=== PATIENT | male | born 1955 | race Caucasian/White ===

== ENCOUNTER 2017-05-07 01:19 | Inpatient (IN) | payer BC ==
[2017-05-07] VITALS (11 sets, daily range): BP systolic 98–138; BP diastolic 64–86
[~2017-05-07] VITALS: Ht 175.3 cm; Wt 65.3 kg
--- NOTE | ~2017-05-07 | 2DMMODE ---
[facility] [address] [place] [address] 2 D/M-MODE ECHOCARDIOGRAM Name: MARY ELLEN BARRIGALAS [place] Room #: 355-P [facility] IN ..#: [id number] Admission: 05/07/17 Attend Phys: Addison Alvarez, Discharge: Date of : 57 Date of Service: 05/07/17 1255 Report #: [id number] THIS REPORT FOR: //name// APPROVED REPORT Study performed: 05/07/2017 11:51:23 EXAM: Comprehensive 2D, Doppler, and color-flow Echocardiogram Patient Location: Bedside Room #: 255 Status: routine BSA: 1.75 HR: 87 bpm BP: 103/68 mmHg Other Information Study Quality: Good Indications Pulmonary Hypertension Dyspnea Cardiomyopathy 2D Dimensions RVDd: 43.94 mm LVEF(%): 14.94 (>50%) IVSd: 9.70 (7-11mm) LVOT Diam: 24.07 (18-24mm) LVDd: 71.21 mm PWd: 11.14 (7-11mm) Ascending Ao: 30.14 (22-36mm) LVDs: 66.29 (25-40mm) Aortic Root: 30.58 mm IVC: 29.00 mm Maldonado's LVEF: 14.94 % Volumes Left Atrial Volume (Systole) Single Plane 4CH: 77.58 mL Single Plane 2CH: 89.35 mL LA ESV Index: 52.00 mL/m2 Aortic Valve AoV Peak Turner.: 1.08 m/s AO Peak Gr.: 4.63 mmHg LVOT Max P.37 mmHg LVOT Max V: 0.58 m/s NOE Vmax: 2.47 cm2 Mitral Valve E/A Ratio: 1.1 [facility] [address] [address] 2 D/M-MODE ECHOCARDIOGRAM Name: LINUSTUTU [place] Room #: 355-P [facility] IN .R.#: [id number] Admission: 05/07/17 Attend Phys: Addison Alvarez, Discharge: Date of : 57 Date of Service: 05/07/17 1255 Report #: [id number] MV Decel. Time: 171.61 ms MV E Max Turner.: 0.61 m/s MV A Turner.: 0.56 m/s MV PHT: 49.77 ms IVRT: 145.33 ms Pulmonary Valve PV Peak Turner.: 0.82 m/s PV Peak Gr.: 2.70 mmHg Pulmonary Vein P Vein S: 0.21 m/s P Vein A: 0.17 m/s P Vein D: 0.30 m/s P Vein A Dur.: 86.5 msec P Vein S/D Ratio: 0.70 Tricuspid Valve TR Peak Turner.: 3.41 m/s TR Peak Gr.: 46.50 mmHg PA Pressure: 62.00 mmHg Left Ventricle Left ventricle is dilated. There is global hypokinesis of the left ventricle. There is normal left ventricular wall thickness. Left ventricular ejection fraction is severely decreased. LVEF is 15-20%. The left ventricular diastolic function is abnormal. Right Ventricle Right ventricle is dilated. Right ventricle is hypokinetic. Atria Left atrium is dilated. Right atrium is dilated. Aortic Valve The aortic valve is normal in structure. Aortic valve is calcified. No aortic regurgitation is present. There is no aortic valvular stenosis. Mitral Valve The mitral valve is normal in structure. Mild mitral regurgitation. No evidence of mitral valve stenosis. Tricuspid Valve The tricuspid valve is normal in structure. There is mild tricuspid regurgitation. There is moderate pulmonary hypertension. Estimated PAP [address] [address] 2 D/M-MODE ECHOCARDIOGRAM Name: TUTU BARRIGA Room #: 355-P [facility] IN .R.#: [id number] Admission: 05/07/17 Attend Phys: Addison Alvarez, Discharge: Date of : 57 Date of Service: 05/07/17 1255 Report #: [id number] Pulmonic Valve The pulmonary valve is normal in structure. Trace pulmonic regurgitation. Great Vessels The aortic root is normal in size. The inferior vena cava is dilated with no inspiratory collapse. Pericardium There is no pericardial effusion. <Conclusion> Left atrium is dilated. Right atrium is dilated. There is global hypokinesis of the left ventricle. There is no pericardial effusion. <ELECTRONICALLY SIGNED> By: Turner Ignacio MD, FACC 05/07/17 1255 1255 1255 Turner Ignacio MD, FACC /INF
--- NOTE | ~2017-05-07 | EKG ---
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
--- NOTE | ~2017-05-07 | HC ---
[facility] [place] [address] CONSULTATION Name: TUTU BARRIGA Room #: 355-P [facility] IN ..#: [id number] Admission: 05/07/17 Attend Phys: Addison Alvarez DO Discharge: Date of : 57 Report #: [id number] THIS REPORT FOR: //name// CC: AMADA physician/PCP Addison Alvarez DATE OF SERVICE: 05/08/2017 REQUESTING PHYSICIAN: Dr. Mccallum. PRIMARY CARE PHYSICIAN: None. CLOTH PRINTING INSPECTOR: Naga Holbrook M.D. REASON FOR CONSULTATION: Congestive heart failure. HISTORY OF PRESENT ILLNESS: The patient is a 61-year-old man admitted with abdominal pain and was found to have acute cholecystitis that had actually been going on since late spring. He was evaluated by surgery, and it was felt that a percutaneous approach may be helpful. From a heart failure standpoint, he denies active chest pain or pressure but had been slightly more short of breath than usual, although there really was not significant weight gain. He presents with a sinus rhythm. He denies palpitations, heart racing or skipping. He does have chills. PAST MEDICAL HISTORY: He has a history of cardiomyopathy. His ejection fraction this hospitalization is in the 20-25% range, global LV dysfunction. He has a history of chronic kidney disease and COPD. No known drug allergies. HOME MEDICATIONS: Carvedilol 25 mg p.o. b.i.d., ramipril 10 mg p.o. b.i.d., simvastatin 10 mg daily, Protonix 40 mg daily, naproxen p.r.n., polyethylene glycol p.r.n. and albuterol p.r.n. SOCIAL HISTORY: There is no active tobacco use. FAMILY HISTORY: Positive for high blood pressure. ALLERGIES: He has no known drug allergies. REVIEW OF SYSTEMS: GASTROINTESTINAL: Positive abdominal pain. Positive nausea. NEUROLOGIC: Denies slurred speech, numbness or weakness. HEMATOLOGIC: No history of anemia or bleeding disorders. [facility] [address] [place] [address] CONSULTATION Name: TUTU BARRIGA Room #: 355-[facility].#: [id number] Admission: 05/07/17 Attend Phys: Addison Alvarez DO Discharge: Date of : 57 Report #: [id number] SKIN: No rashes. GENERAL: No fevers or chills. MUSCULOSKELETAL: Denies any joint pain or falls. CARDIOVASCULAR: No palpitations, no syncope or presyncope. PHYSICAL EXAMINATION: VITAL SIGNS: Blood pressure is 121/81, pulse is 95, temperature is 36.7 and O2 sats 94%. GENERAL: This is a pleasant middle-aged male. He is alert, in no apparent distress. NECK: Supple. No jugular venous distention. CARDIOVASCULAR: Regular. I could not hear a murmur. There is positive S3. LUNGS: Clear to auscultation. ABDOMEN: Diffusely nontender. There is no rebound or guarding. EXTREMITIES: There is no peripheral edema. There is no evidence of peripheral wasting. SKIN: Warm and dry. PSYCHIATRIC: The patient has appropriate mood and affect. LABORATORY DATA: Electrocardiogram demonstrates sinus rhythm and left bundle-branch block. Hemoglobin is 11.0. White blood cell count is 12.3. Platelet count is 186,000. Sodium is 135. Potassium is 3.6. Chloride is 99. CO2 is 25. BUN is 48. Creatinine is 2.1. Troponin I is 0.04. NT-proBNP is 51,253. Chest x-ray: Increased cardiomegaly, patchy increased markings compatible with a right middle lobe and right lower lobe that may represent developing atelectasis or pneumonia. Early congestive heart failure or focal edema cannot be occluded. IMPRESSION AND PLAN: 1. Acute cholecystitis. He has been treated with a percutaneous approach and aggressive antibiotic therapy with piperacillin. 2. Acute systolic congestive heart failure. He has been placed on Lasix intravenous, but we will need to monitor blood pressures and kidney function. 3. Chronic kidney disease. As noted above, he has fairly significant kidney disease, and we will need to conscious monitor his renal function while he is being diuresed. 4. Severe left ventricular dysfunction. In the setting of the left bundle-branch block, he may be a candidate for Bi-V implantable cardioverter-defibrillator, but certainly he is acutely infectious, so this sort of device implantation would not be prudent at this time. We will arrange for close followup with Dr. Holbrook, his usual terrazzo tile setter, upon discharge for evaluation for this type of therapy. [address] [address] CONSULTATION Name: TUTU BARRIGA Room #: 355-P [facility] IN M.R.#: [id number] Admission: 05/07/17 Attend Phys: Addison Alvarez DO Discharge: Date of : 57 Report #: [id number] From a heart failure standpoint, he actually given his severe left ventricular dysfunction is fairly well compensated. By: [id number] Turner Ignacio MD, FACC /nt
[~2017-05-07 01:19] MED LIST: ALDACTONE25 MG PO; AZITHROMYCIN 2250 MG PO; BENZONATATE100 MG PO; CARVEDILOL3.125 MG PO; K-DUR 20 MEQ T20 MEQ PO; LASIX 40 MG TAB40 M1 PO; LASIX 40 MG TAB40 M2 PO; LEVAQUIN 500 M500 MG PO; MIRALAX255 GM PO; MOBIC15 MG PO; MUCINEX600 MG; NAPROSYN500 MG PO; NOHOMEMEDICATIONS; PANTOPRAZOLE SO40 M1 PO; POTASSIUM20 PO; PREDNISONE 20 M20 M1 PO; PREDNISONE 20 M20 MG PO; PREDNISONE50 MG PO; PROAIR HFA8.5 GM IH; PROAIR HFA8.5 GM INH; PROMETHAZINE-C120 ML PO; PROVENTIL HFA6.7 G1 INH; RAMIPRIL10 MG PO; TESSALON PERLE100 MG PO; ZOCOR20 MG PO; ZPAK PO
[2017-05-07 01:53] LABS: HEMATOCRIT 39.9 % (42.0-52.0); HEMOGLOBIN 12.8 gm/dL (14.0-18.0); MCH 25.9 pg (26.0-34.0); MCHC 32.1 g/dL (28.0-37.0); MCV 80.8 fL (80.0-100.0); RBC 4.94 mil/uL (4.50-6.00); RDW 17.7 % (10.5-14.5); WBC 17.4 thou/uL (4.0-11.0)
[2017-05-07 02:01] LABS: ANION GAP 8 mmol/L (7-16); BUN 49 mg/dL (7-18); CALCIUM 9.4 mg/dL (8.5-10.1); CHLORIDE 98 mmol/L (98-107); CO2 27 mmol/L (21-32); CREATININE 1.9 mg/dL (0.7-1.3); GLUCOSE 139 mg/dL (74-106); POTASSIUM 4.8 mmol/L (3.5-5.1); SODIUM 133 mmol/L (136-145)
[2017-05-07] MEDS ORDERED: ENTRESTO 49 MG1 EACH PO (02:09)
[2017-05-07 02:10] LABS: ALBUMIN 3.4 g/dL (3.4-5.0); ALKALINE PHOSPHATASE 213 U/L (46-116); SGOT 34 U/L (15-37); SGPT 32 U/L (30-65); TOTAL BILIRUBIN 1.2 mg/dL (<0.1-1.0); TOTAL PROTEIN 8.3 g/dL (6.4-8.2); TROPONIN-I < 0.04 ng/mL (<0.04-0.07)
[2017-05-07 04:56] LABS: APTT 30.6 Seconds (24.5-32.8); INR 1.1; PROTIME 10.9 Seconds (9.3-11.4)
[2017-05-07] MEDS ORDERED: CARVEDILOL6.25 MG (06:02)
[2017-05-08 04:45] VITALS: BP 130/83
[2017-05-08 06:13] LABS: HEMATOCRIT 34.2 % (42.0-52.0); MCH 25.8 pg (26.0-34.0); MCHC 32.2 g/dL (28.0-37.0); MCV 80.2 fL (80.0-100.0); RBC 4.26 mil/uL (4.50-6.00); WBC 12.3 thou/uL (4.0-11.0)
[2017-05-08 06:50] LABS: ALBUMIN 2.9 g/dL (3.4-5.0); CALCIUM 8.9 mg/dL (8.5-10.1); CREATININE 2.1 mg/dL (0.7-1.3); POTASSIUM 3.6 mmol/L (3.5-5.1); TOTAL BILIRUBIN 1.6 mg/dL (<0.1-1.0); TOTAL PROTEIN 7.6 g/dL (6.4-8.2)
[2017-05-08 08:14] VITALS: BP 121/81
[2017-05-08 12:15] VITALS: BP 125/87
[2017-05-08 20:00] VITALS: BP 119/91
[2017-05-09 04:00] VITALS: BP 118/83
[2017-05-09 05:55] LABS: BASOPHILS 0.6 % (0.0-2.0); EOSINOPHILS 1.9 % (0.0-3.0); HEMATOCRIT 34.5 % (42.0-52.0); HEMOGLOBIN 11.6 gm/dL (14.0-18.0); LYMPHOCYTES 25.5 % (24.0-44.0); MCH 26.3 pg (26.0-34.0); MCHC 33.5 g/dL (28.0-37.0); MCV 78.5 fL (80.0-100.0); MONOCYTES 4.6 % (1.0-8.0); PLATELET COUNT 203 thou/uL (150-400); POLYS 67.4 % (36.0-66.0); RBC 4.39 mil/uL (4.50-6.00); WBC 13.3 thou/uL (4.0-11.0)
[2017-05-09 05:59] LABS: CALCIUM 9.3 mg/dL (8.5-10.1); CREATININE 2.1 mg/dL (0.7-1.3); POTASSIUM 3.2 mmol/L (3.5-5.1)
[2017-05-09 06:01] LABS: MANUAL DIFF NO
[2017-05-09 08:40] VITALS: BP 125/91
[2017-05-09 12:45] VITALS: BP 115/82
[2017-05-09 16:15] VITALS: BP 118/84
[2017-05-09 19:44] VITALS: BP 121/91
[2017-05-10 04:25] VITALS: BP 125/86
[2017-05-10] MEDS ORDERED: AUGMENTIN 875-1 EACH PO (10:08)
[2017-05-10] MEDS ORDERED: OXYCODONE HCL10 MG PO (10:08)
[2017-05-10 10:09] LABS: ABSOLUTE NEUTROPHILS 5.5 thou/uL (1.4-8.2); BASOPHILS 1.1 % (0.0-2.0); EOSINOPHILS 2.8 % (0.0-3.0); HEMATOCRIT 35.9 % (42.0-52.0); HEMOGLOBIN 11.9 gm/dL (14.0-18.0); LYMPHOCYTES 34.8 % (24.0-44.0); MANUAL DIFF NO; MCH 26.3 pg (26.0-34.0); MCHC 33.1 g/dL (28.0-37.0); MCV 79.5 fL (80.0-100.0); MONOCYTES 8.3 % (1.0-8.0); PLATELET COUNT 226 thou/uL (150-400); RBC 4.51 mil/uL (4.50-6.00); RDW 17.8 % (10.5-14.5); WBC 10.4 thou/uL (4.0-11.0)
[2017-05-10 10:13] LABS: CREATININE 2.3 mg/dL (0.7-1.3)
[2017-05-10 10:40] VITALS: BP 125/86
== END 2017-05-10 11:35 | disposition home or self-care (01) | DRG 871 ==
LOC: ER 01:19 → EROBS 03:59 → 3W 03:59
PROVIDERS: Emergency Medicine; Family Medicine; Nurse Practitioner Family; Radiology Diagnostic Radiology
PROC: 0F943ZZ Drainage of Gallbladder, Percutaneous Approach (ICD-10-PCS; principal; 2017-05-07)
DX: A41.9 Sepsis, unspecified organism (principal); I50.23 Acute on chronic systolic (congestive) heart failure; N17.9 Acute kidney failure, unspecified; I42.9 Cardiomyopathy, unspecified; K81.0 Acute cholecystitis; M10.9 Gout, unspecified; F17.210 Nicotine dependence, cigarettes, uncomplicated; J44.9 Chronic obstructive pulmonary disease, unspecified; N18.9 Chronic kidney disease, unspecified; I44.7 Left bundle-branch block, unspecified; Z82.49 Family history of ischemic heart disease and other diseases of the circulatory system; Z23 Encounter for immunization; Z79.899 Other long term (current) drug therapy
CPT/HCPCS: 10779

== ENCOUNTER 2017-10-06 12:12 | Inpatient (IN) | payer BC ==
[~2017-10-06] VITALS: Ht 175.3 cm; Wt 68.0 kg
--- NOTE | ~2017-10-06 | EKG ---
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 : 1955 Requested By: Yazmin Valderrama Order Number: [id number] MD: Osmani Roe Measurements Intervals [place] Rate: 94 P: 77 ME: 191 QRS: -67 QRSD: 135 T: 113 QT: 420 QTc: 526 Interpretive Statements Sinus rhythm Biatrial enlargement Left bundle branch block Compared to ECG 05/07/2017 01:25:06 Left bundle-branch block now present Sinus tachycardia no longer present Electronically Signed On 10-07-2017 8:05:35 SAND TEMPERER by Osmani Roe [email or web address] <ELECTRONICALLY SIGNED> By: Osmani Roe MD, [facility] 10/07/17 0805 15 Osmani Roe MD, [facility] /EPI
--- NOTE | ~2017-10-06 | HC ---
[facility] [place] [address] CONSULTATION Name: TUTU BARRIGA Room #: 358-P [facility] IN M.R.#: [id number] Admission: 10/06/17 Attend Phys: Stevan Coleman Discharge: 10/07/17 Date of : 57 Report #: [id number] THIS REPORT FOR: //name// CC: Stevan Coleman Dorian Bhardwaj DATE OF SERVICE: 10/07/2017 REQUESTING PHYSICIAN: Stevan Coleman MD PRIMARY GRADUATE RECRUITER: Naga Holbrook MD CHIEF COMPLAINT: Shortness of breath. HISTORY OF PRESENT ILLNESS: The patient is a 62-year-old man who has a history of nonischemic cardiomyopathy and COPD, presented with 4 days of shortness of breath and minimally productive cough. He denies weight gain, actually he had been losing weight as he has a history of gallbladder disease and recently had a drainage tube placed. This has subsequently been resolved. He denies chest pain. He denies fevers or chills. He denies palpitations, syncope, or presyncope, presents with a sinus rhythm with LVH. Overnight, he has been given IV Lasix and urinating quite frequently as well as nebulizers and is feeling like he wants to go home as he had difficulty sleeping in the hospital. PAST MEDICAL HISTORY: Nonischemic cardiomyopathy, ejection fraction 20% range, chronic COPD, cholecystitis, prior cholecystostomy, , chronic kidney disease. ALLERGIES: Denies any allergies. HOME MEDICATIONS: Include carvedilol 6.25 mg once daily, Meloxicam p.r.n., potassium chloride 20 mEq daily, Lasix 40 mg p.o. b.i.d., Aldactone 25 mg daily and he had ran out of Farelogix, which he had been given samples and actually did really well on the 49/51 mg dose. SOCIAL HISTORY: He is a current everyday smoker. He drinks daily. [facility] [address] [place] [address] CONSULTATION Name: TUTU BARRIGA Room #: 358-P [facility] IN [facility].#: [id number] Admission: 10/06/17 Attend Phys: Stevan Coleman Discharge: 10/07/17 Date of : 57 Report #: [id number] REVIEW OF SYSTEMS: CONSTITUTIONAL: No fevers or chills. EYES: Denies any blurred vision or loss of vision. HEENT: Denies any headaches or blurred vision. RESPIRATORY: Positive shortness of breath, positive cough. CARDIOVASCULAR: No chest pain. No palpitation. No syncope or presyncope. GASTROINTESTINAL: Mild abdominal distention and abdominal pain. GENITOURINARY: No dysuria or hematuria. NEUROLOGIC: Denies slurred speech, numbness or weakness. MUSCULOSKELETAL: No falls. PHYSICAL EXAMINATION: VITAL SIGNS: Blood pressure is 93/62, pulse is 88, and temperature is 36.6. GENERAL: This is a thin, middle-aged male. He is unkempt. HEENT: Unremarkable. Eyes intact. No facial asymmetry. NECK: Supple. There is no jugular venous distention. CARDIOVASCULAR: Regular, there is positive S3. LUNGS: Clear to auscultation. ABDOMEN: Soft, nontender, mild distention. No rebound or guarding. EXTREMITIES: There is no peripheral edema. SKIN: Warm and dry. There is peripheral wasting. There are no focal deficits. Electrocardiogram demonstrates sinus rhythm, LVH repolarization abnormality. LABORATORY DATA: Hemoglobin is 13.0, white blood cell count is 12.4. Sodium is 141, potassium is 3.5, chloride is 99, CO2 is 32, BUN is 42, creatinine is 1.8, on admission it was 1.7; and GFR is 39. Troponin I is 0.04 times 2 sets. NT-proBNP is 8676, it was as high as 51,000 in April of last year when he was in the hospital with CHF. IMPRESSION: 1. Acute on chronic systolic dysfunction, congestive heart failure. He is presently on IV Lasix b.i.d. and has a good response. I would continue with his carvedilol as his blood pressure tolerates. 2. Nonischemic cardiomyopathy. He had done well on Entresto. I think he would qualify for a prescription assistance program. I would not inpatient though because his blood pressure is a bit low while simultaneously receiving IV Lasix, this can be restarted as an outpatient. I discussed the importance of this with the patient in regards to its prevention of hospitalizations for congestive heart failure. 3. History of substance abuse. 4. Chronic obstructive pulmonary disease exacerbation. He is on aggressive pulmonary toilet. [address] [address] CONSULTATION Name: TUTU BARRIGA Room #: 358-P [facility] IN M.R.#: [id number] Admission: 10/06/17 Attend Phys: Stevan Coleman Discharge: 10/07/17 Date of : 57 Report #: [id number] He will follow up with our nurse practitioner in 1 week. I would leave his oral Lasix dose the same as we are restarting Entresto as an outpatient. <ELECTRONICALLY SIGNED> By: Turner Ignacio MD, FACC 11/12/17 0828 0855 1042 Turner Ignacio MD, FACC /nt
[~2017-10-06 12:12] MED LIST changes: -ALDACTONE25 MG PO; +AUGMENTIN 875-1 EACH PO; +COREG6.25 MG PO; +ENTRESTO 49 MG1 EACH PO; +NORCO 5-325 TA1 EACH PO; +OXYCODONE HCL10 MG PO; +SPIRONOLACTONE25 M1 PO
[2017-10-06 12:19] VITALS: BP 121/81
[2017-10-06 12:33] LABS: ABSOLUTE NEUTROPHILS 7.7 thou/uL (1.4-8.2); EOSINOPHILS 2.5 % (0.0-3.0); HEMATOCRIT 39.3 % (42.0-52.0); LYMPHOCYTES 26.6 % (24.0-44.0); MCH 26.6 pg (26.0-34.0); MCHC 33.1 g/dL (28.0-37.0); MCV 80.6 fL (80.0-100.0); MONOCYTES 7.4 % (1.0-8.0); PLATELET COUNT 285 thou/uL (150-400); POLYS 62.5 % (36.0-66.0); RBC 4.87 mil/uL (4.50-6.00); RDW 17.2 % (10.5-14.5); WBC 12.4 thou/uL (4.0-11.0)
[2017-10-06 12:40] LABS: ANION GAP 8 mmol/L (7-16); BUN 48 mg/dL (7-18); CALCIUM 9.3 mg/dL (8.5-10.1); CHLORIDE 99 mmol/L (98-107); CO2 27 mmol/L (21-32); CREATININE 1.7 mg/dL (0.7-1.3); GLUCOSE 180 mg/dL (74-106); SODIUM 134 mmol/L (136-145)
[2017-10-06 12:49] LABS: TROPONIN-I < 0.04 ng/mL (<0.06)
[2017-10-06 14:40] VITALS: BP 114/84
[2017-10-06 15:25] VITALS: BP 89/58
[2017-10-06 15:52] VITALS: BP 114/82
[2017-10-06 19:10] VITALS: BP 90/50
[2017-10-07 05:48] VITALS: BP 99/68
[2017-10-07 06:24] LABS: ALBUMIN 3.2 g/dL (3.4-5.0); ANION GAP 10 mmol/L (7-16); BUN 42 mg/dL (7-18); CALCIUM 9.7 mg/dL (8.5-10.1); CHLORIDE 99 mmol/L (98-107); CO2 32 mmol/L (21-32); CREATININE 1.8 mg/dL (0.7-1.3); GLUCOSE 92 mg/dL (74-106); PHOSPHORUS 3.4 mg/dL (2.5-4.9); POTASSIUM 3.5 mmol/L (3.5-5.1); SODIUM 141 mmol/L (136-145); TROPONIN-I < 0.04 ng/mL (<0.06)
[2017-10-07 08:07] VITALS: BP 93/62
[2017-10-07 09:04] VITALS: BP 93/62
[2017-10-07 09:07] VITALS: BP 93/62
[2017-11-15] MEDS ORDERED: PERCOCET 5-3251 EACH PO (12:31)
[2017-11-15] MEDS ORDERED: ONDANSETRON HCL4 M2 PO (12:38)
[2018-04-01] MEDS ORDERED: COREG6.25 MG PO (10:25)
[2018-04-01] MEDS ORDERED: ZAROXOLYN 5MG TA5 MG PO (10:25)
[2018-04-01] MEDS ORDERED: K-DUR 20 MEQ T20 MEQ PO (11:37)
[2018-05-02] MEDS ORDERED: LASIX 40 MG TAB40 M2 PO (22:34)
[2018-05-05] MEDS ORDERED: PREDNISONE 10 M10 MG PO (15:02)
[2018-05-05] MEDS ORDERED: PROTONIX40 M1 PO (15:02)
[2018-05-05] MEDS ORDERED: VENTOLIN HFA 1818 GM INH (15:02)
[2018-06-14] MEDS ORDERED: CLEOCIN HCL150 MG PO (09:44)
== END 2017-10-07 09:33 | disposition home or self-care (01) | DRG 292 ==
LOC: ER 12:12 → EROBS 13:30 → 3W 15:53
PROVIDERS: Emergency Medicine; Hospitalist
DX: I50.23 Acute on chronic systolic (congestive) heart failure (principal); I42.9 Cardiomyopathy, unspecified; J44.1 Chronic obstructive pulmonary disease with (acute) exacerbation; D64.9 Anemia, unspecified; F17.210 Nicotine dependence, cigarettes, uncomplicated; N18.9 Chronic kidney disease, unspecified; M10.9 Gout, unspecified
CPT/HCPCS: 10779

== ENCOUNTER 2017-10-22 22:39 | Emergency (ER) | payer OTHER ==
[~2017-10-22] VITALS: Ht 175.3 cm; Wt 72.6 kg
--- NOTE | ~2017-10-22 | EKG ---
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
[2017-10-22] MEDS ORDERED: ASPIR 8181 MG PO (23:21)
[2017-10-22 23:55] LABS: HEMATOCRIT 37.8 % (42.0-52.0); HEMOGLOBIN 12.4 gm/dL (14.0-18.0); MCH 26.1 pg (26.0-34.0); MCHC 32.7 g/dL (28.0-37.0); MCV 79.9 fL (80.0-100.0); RBC 4.73 mil/uL (4.50-6.00); RDW 16.6 % (10.5-14.5); WBC 12.6 thou/uL (4.0-11.0)
[2017-10-23 00:06] LABS: CALCIUM 9.6 mg/dL (8.5-10.1); CREATININE 2.1 mg/dL (0.7-1.3); POTASSIUM 3.8 mmol/L (3.5-5.1)
[2017-10-23 01:28] VITALS: BP 132/64
[2017-11-15] MEDS ORDERED: PERCOCET 5-3251 EACH PO (12:31)
[2017-11-15] MEDS ORDERED: ONDANSETRON HCL4 M2 PO (12:38)
[2018-04-01] MEDS ORDERED: COREG6.25 MG PO (10:25)
[2018-04-01] MEDS ORDERED: ZAROXOLYN 5MG TA5 MG PO (10:25)
[2018-04-01] MEDS ORDERED: K-DUR 20 MEQ T20 MEQ PO (11:37)
[2018-05-02] MEDS ORDERED: LASIX 40 MG TAB40 M2 PO (22:34)
[2018-05-05] MEDS ORDERED: PROTONIX40 M1 PO (15:02)
[2018-05-05] MEDS ORDERED: VENTOLIN HFA 1818 GM INH (15:02)
[2018-05-05] MEDS ORDERED: PREDNISONE 10 M10 MG PO (15:02)
[2018-06-14] MEDS ORDERED: CLEOCIN HCL150 MG PO (09:44)
== END 2017-10-23 01:18 | disposition home or self-care (01) ==
LOC: ER 22:39
PROVIDERS: Emergency Medicine
DX: I50.9 Heart failure, unspecified (principal); R06.00 Dyspnea, unspecified; M10.9 Gout, unspecified; J44.9 Chronic obstructive pulmonary disease, unspecified; I95.9 Hypotension, unspecified; F17.210 Nicotine dependence, cigarettes, uncomplicated; F10.99 Alcohol use, unspecified with unspecified alcohol-induced disorder; Z86.2 Personal history of diseases of the blood and blood-forming organs and certain disorders involving the immune mechanism

== ENCOUNTER 2017-10-23 12:26 | Inpatient (IN) | payer OTHER ==
[~2017-10-23] VITALS: Ht 175.3 cm; Wt 71.2 kg
--- NOTE | ~2017-10-23 | HC ---
[facility] [place] [address] CONSULTATION Name: TUTU BARRIGA Room #: 219-P ADM IN M.R.#: [id number] Admission: 10/23/17 Attend Phys: Manan Noyola MD Discharge: Date of : 57 Report #: [id number] THIS REPORT FOR: //name// CC: Supa Bhardwaj MD DATE OF SERVICE: 10/23/2017 HISTORY OF PRESENT ILLNESS: The patient a 62-year-old white male who I was asked to see in the hospital today after he complained of being short of breath. The history is obtained from the patient, his as well as some old records. The patient has had multiple hospitalizations here at [facility]. He initially saw my partner, Dr. Holbrook back in 2012. He presented with evidence of congestive heart failure. He had had no previous cardiac diagnosis. He was a smoker at that time. He underwent an echocardiogram back in 2012 that showed an ejection fraction of only 20% with biatrial enlargement and the right ventricle is dilated as well. He has been followed by Dr. Holbrook since that time. He was on no previous medication, was discharged on carvedilol, Lasix, lisinopril, potassium. He was admitted to [facility] last April with abdominal pain, was found to have evidence of cholecystitis. Because of his heart disease, he is felt to be a high operative risk for cholecystectomy. Therefore, he had a biliary drain placed and was sent home with a drain. The drain was eventually removed after a few weeks. He never had his gallbladder removed. The patient is not very active because of his heart disease. He was actually just admitted to [facility] last week with shortness of breath. He was seen by my partner, Dr. Ignacio. He was given IV Lasix and discharged. He was felt to be a candidate for Entresto, but his blood pressure is low. The patient was brought to the Emergency Room today by his . He has been more short of breath for the past couple of days. He has some abdominal distention and nausea with no appetite. The patient denies any chest pain, palpitations, recent syncope, fever, cough, bleeding. PAST MEDICAL HISTORY: Otherwise significant for knee surgery, tonsillectomy. He has no history of hypertension or diabetes. No history of hyperlipidemia. CURRENT MEDICATIONS: Include carvedilol 6.25 mg twice day, furosemide 120 mg a day, spironolactone 25 mg a day. ALLERGIES: He has no known drug allergies. FAMILY HISTORY: Negative for heart disease. [facility] [address] [place] [address] CONSULTATION Name: TUTU BARRIGA Room #: 219-P [facility] IN M.R.#: [id number] Admission: 10/23/17 Attend Phys: Manan Noyola MD Discharge: Date of : 57 Report #: [id number] SOCIAL HISTORY: He is , lives in [facility]. He is unemployed because of his heart disease. 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 Smokes a pack of cigarettes a day. No alcohol abuse. REVIEW OF SYSTEMS: No history of stroke. He has passed out in the past, felt to be secondary to low blood pressure. He has had a peptic ulcer in the past. No history of kidney disease, cancer or psychiatric illness. PHYSICAL EXAMINATION: GENERAL: Revealed a middle-aged male, lying in bed. He appears in no acute distress. VITAL SIGNS: His blood pressure 110/70, pulse is 80. He is afebrile. HEENT: He was anicteric. Conjunctivae pink. Mucous membranes moist. NECK: Veins appeared mildly distended. Neck was supple. CHEST: Decreased breath sounds at bases. CARDIOVASCULAR: Regular rate and rhythm, S3 gallop. No significant murmur. ABDOMEN: Soft, nontender. EXTREMITIES: Had no pitting edema. Posterior tibial pulse 1+ bilaterally. SKIN: His skin was cool and dry. LABORATORY DATA: His ECG shows a sinus rhythm with left axis left atrial enlargement, left bundle branch block. Workup in an echocardiogram today shows no pericardial effusion, dilated left ventricle, ejection fraction less than 20% with biatrial enlargement, moderate mitral and tricuspid insufficiency. His workup today in the Emergency Room, he had a VQ scan of the lung that showed no evidence of a pulmonary embolus. CT scan of the abdomen and pelvis with IV contrast today showed thickening of the gallbladder, small amount of ascites. His ultrasound of the abdomen today shows gallbladder thickening. His chest x-ray that was actually done last night showed cardiomegaly, no pulmonary edema. His lab work, sodium was 137, potassium 3.6. His BUN is up to 68. His creatinine is 2.1, glucose is 141. His albumin is 3.2. BNP 26,540. White blood cell count 10.0, hemoglobin 13.2. IMPRESSION AND RECOMMENDATIONS: 1. Acute on chronic systolic heart failure. Recommend IV Lasix. I would continue carvedilol and spironolactone. If blood pressure tolerated, then would consider resuming Entresto. Because of his severe cardiomyopathy, would consider implantation of a biventricular defibrillator. 2. Tobacco abuse. 3. Chronic obstructive pulmonary disease. 4. Chronic kidney disease. <ELECTRONICALLY SIGNED> By: Jace Naik MD, FACC 10/24/17 1747 1737 1929 Jace Naik MD, FAC /nt
--- NOTE | ~2017-10-23 | 2DMMODE ---
[facility] [place] [address] 2 D/M-MODE ECHOCARDIOGRAM Name: TUTU BARRIGA Room #: 219-P [facility] IN ..#: [id number] Admission: 10/23/17 Attend Phys: Manan Noyola MD Discharge: Date of : 57 Date of Service: 10/23/17 1709 Report #: [id number] THIS REPORT FOR: //name// APPROVED REPORT Study performed: 10/23/2017 15:28:11 EXAM: Comprehensive 2D, Doppler, and color-flow Echocardiogram Patient Location: Bedside Room #: ER Status: on-call BSA: 1.87 HR: 82 bpm BP: 113/65 mmHg Rhythm: NSR Other Information Study Quality: Excellent Indications Hypotension Congestive Heart Failure COPD Dyspnea 2D Dimensions LVEF(%): 15.25 (>50%) IVSd: 11.24 (7-11mm) LVOT Diam: 21.60 (18-24mm) LVDd: 69.25 mm PWd: 12.54 (7-11mm) Ascending Ao: 29.81 (22-36mm) LVDs: 64.37 (25-40mm) Aortic Root: 26.39 mm LV Single Plane 2CH: 22.56 % Maldonado's LVEF: 15.25 % Volumes Left Atrial Volume (Systole) Single Plane 4CH: 72.41 mL Single Plane 2CH: 75.83 mL LA ESV Index: 42.00 mL/m2 Aortic Valve AoV Peak Turner.: 0.76 m/s AO Peak Gr.: 2.33 mmHg LVOT Max P.02 mmHg LVOT Max V: 0.51 m/s NOE Vmax: 2.43 cm2 [facility] [place] [address] [place] [address] 2 D/M-MODE ECHOCARDIOGRAM Name: TUTU BARRIGA Room #: 219-P ADM IN ..#: [id number] Admission: 10/23/17 Attend Phys: Manan Noyola MD Discharge: Date of : 57 Date of Service: 10/23/17 1709 Report #: [id number] Pulmonary Valve PV Peak Turner.: 0.72 m/s PV Peak Gr.: 2.08 mmHg Tricuspid Valve TR Peak Turner.: 2.93 m/s RAP Estimate: 15.00 mmHg TR Peak Gr.: 34.29 mmHg PA Pressure: 50.00 mmHg Left Ventricle Left ventricle is moderately dilated. There is global hypokinesis of the left ventricle. Borderline concentric left ventricular hypertrophy. Left ventricular systolic function is severely decreased. LVEF is 10-15%. The diastolic function is abnormal. Right Ventricle Right ventricle is dilated. Right ventricular systolic function is severely reduced. Atria Left atrium is moderately dilated. Right atrium is moderately dilated. Aortic Valve The aortic valve is normal in structure. No aortic regurgitation is present. There is no aortic valvular stenosis. Mitral Valve The mitral valve is normal in structure. Mild to moderate mitral regurgitation. No evidence of mitral valve stenosis. Tricuspid Valve The tricuspid valve is normal in structure. Moderate tricuspid regurgitation. Pulmonary artery pressure is 50 mmHg. Pulmonic Valve The pulmonary valve is normal in structure. Mild to moderate pulmonic regurgitation. Great Vessels The aortic root is normal in size. The inferior vena cava is dilated with no inspiratory collapse. Pericardium There is no pericardial effusion. <Conclusion> [facility] [place] [place] [address] 2 D/M-MODE ECHOCARDIOGRAM Name: TUTU BARRIGA Room #: 219-P ADM IN M.R.#: [id number] Admission: 10/23/17 Attend Phys: Manan Noyola MD Discharge: Date of : 57 Date of Service: 10/23/171708 Report #: [id number] Left ventricle is moderately dilated. LVEF is 10-15%. Right ventricle is dilated. Left atrium is moderately dilated. Right atrium is moderately dilated. Mild to moderate mitral regurgitation. Moderate tricuspid regurgitation. Pulmonary artery pressure is 50 mmHg. <ELECTRONICALLY SIGNED> By: Jace Naik MD, [facility] 10/23/171708 08 1709 Jace Naik MD, FACC /INF
--- NOTE | ~2017-10-23 | EKG ---
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 10/24/17 1344 1315 1315 Osmani Roe MD, [facility] /EPI
[~2017-10-23 12:26] MED LIST changes: +ASPIR 8181 MG PO
[2017-10-23 12:35] VITALS: BP 110/76
[2017-10-23 13:21] LABS: ABSOLUTE NEUTROPHILS 5.1 thou/uL (1.4-8.2); BASOPHILS 1.2 % (0.0-2.0); EOSINOPHILS 2.4 % (0.0-3.0); HEMATOCRIT 39.8 % (42.0-52.0); HEMOGLOBIN 13.2 gm/dL (14.0-18.0); LYMPHOCYTES 37.3 % (24.0-44.0); MCH 26.6 pg (26.0-34.0); MCHC 33.2 g/dL (28.0-37.0); MCV 79.9 fL (80.0-100.0); MONOCYTES 7.8 % (1.0-8.0); PLATELET COUNT 250 thou/uL (150-400); POLYS 51.3 % (36.0-66.0); RBC 4.98 mil/uL (4.50-6.00); RDW 16.8 % (10.5-14.5)
[2017-10-23 13:37] LABS: ANION GAP 10 mmol/L (7-16); BUN 68 mg/dL (7-18); CALCIUM 9.1 mg/dL (8.5-10.1); CHLORIDE 97 mmol/L (98-107); CO2 30 mmol/L (21-32); CREATININE 2.1 mg/dL (0.7-1.3); GLUCOSE 141 mg/dL (74-106); POTASSIUM 3.6 mmol/L (3.5-5.1); SODIUM 137 mmol/L (136-145)
[2017-10-23 13:41] LABS: ALBUMIN 3.2 g/dL (3.4-5.0); LIPASE 57 U/L (73-393); MAGNESIUM 2.2 mg/dL (1.8-2.4); SGOT 29 U/L (15-37); SGPT 29 U/L (30-65); TOTAL BILIRUBIN 0.4 mg/dL (<0.1-1.0); TOTAL PROTEIN 8.6 g/dL (6.4-8.2); TROPONIN-I < 0.04 ng/mL (<0.06)
[2017-10-23 13:43] LABS: APTT 27.3 Seconds (24.5-32.8); D-DIMER 1.58 ug/mLFEU (0.19-0.50); INR 1.2; PROTIME 12.2 Seconds (9.3-11.4)
[2017-10-23 15:03] VITALS: BP 110/76
[2017-10-23 16:32] VITALS: BP 120/87
[2017-10-23 17:45] VITALS: BP 120/83
[2017-10-23 19:53] VITALS: BP 133/72
[2017-10-24 00:10] VITALS: BP 103/74
[2017-10-24 03:08] LABS: URINE BILIRUBIN NEGATIVE (Negative); URINE BLOOD NEGATIVE (Negative); URINE CLARITY CLEAR; URINE COLOR YELLOW; URINE GLUCOSE-RANDOM* NEGATIVE (Negative); URINE KETONES NEGATIVE (Negative); URINE LEUKOCYTES-REFLEX NEGATIVE (Negative); URINE NITRITE-REFLEX NEGATIVE (Negative); URINE PROTEIN (DIPSTICK) NEGATIVE (Negative); URINE SPECIFIC GRAVITY <= 1.005 (1.005-1.035); URINE UROBILINOGEN 0.2 E.U./dl (0.2-1.0)
[2017-10-24 05:26] VITALS: BP 96/66
[2017-10-24 07:03] LABS: HEMATOCRIT 38.9 % (42.0-52.0); HEMOGLOBIN 12.5 gm/dL (14.0-18.0); MCH 25.9 pg (26.0-34.0); MCHC 32.1 g/dL (28.0-37.0); MCV 80.7 fL (80.0-100.0); RBC 4.82 mil/uL (4.50-6.00); RDW 16.8 % (10.5-14.5)
[2017-10-24 07:09] LABS: CALCIUM 9.2 mg/dL (8.5-10.1); CREATININE 2.6 mg/dL (0.7-1.3); POTASSIUM 3.8 mmol/L (3.5-5.1)
[2017-10-24 08:30] VITALS: BP 114/80
[2017-10-24 10:39] LABS: AMP/METHAMP POSITIVE (Negative); BARBITURATES Negative (Negative); BENZODIAZEPINES Negative (Negative); COCAINE Negative (Negative); METHADONE Negative (Negative); OPIATES POSITIVE (Negative); PCP Negative (Negative)
[2017-10-24 12:30] VITALS: BP 97/66
[2017-10-24 16:00] VITALS: BP 105/71
[2017-10-24 20:18] VITALS: BP 113/79
[2017-10-25] VITALS (11 sets, daily range): BP systolic 100–125; BP diastolic 45–85
[2017-10-25 03:27] LABS: HEMATOCRIT 39.4 % (42.0-52.0); HEMOGLOBIN 12.7 gm/dL (14.0-18.0); MCH 26.1 pg (26.0-34.0); MCHC 32.3 g/dL (28.0-37.0); MCV 80.7 fL (80.0-100.0); RBC 4.88 mil/uL (4.50-6.00); RDW 16.8 % (10.5-14.5); WBC 11.8 thou/uL (4.0-11.0)
[2017-10-25 03:43] LABS: CALCIUM 9.3 mg/dL (8.5-10.1); CREATININE 3.1 mg/dL (0.7-1.3); POTASSIUM 4.3 mmol/L (3.5-5.1)
[2017-10-26] VITALS (7 sets, daily range): BP systolic 98–115; BP diastolic 56–91
[2017-10-26 09:27] LABS: CALCIUM 9.9 mg/dL (8.5-10.1); CREATININE 2.4 mg/dL (0.7-1.3); POTASSIUM 3.5 mmol/L (3.5-5.1)
[2017-10-27 04:30] VITALS: BP 95/58
[2017-10-27] MEDS ORDERED: METOLAZONE 5 MG5 MG PO (10:59)
[2017-10-27] MEDS ORDERED: LISINOPRIL2.5 MG PO (11:00)
[2017-10-27 11:30] VITALS: BP 95/58
[2017-11-15] MEDS ORDERED: PERCOCET 5-3251 EACH PO (12:31)
[2017-11-15] MEDS ORDERED: ONDANSETRON HCL4 M2 PO (12:38)
[2018-04-01] MEDS ORDERED: COREG6.25 MG PO (10:25)
[2018-04-01] MEDS ORDERED: ZAROXOLYN 5MG TA5 MG PO (10:25)
[2018-04-01] MEDS ORDERED: K-DUR 20 MEQ T20 MEQ PO (11:37)
[2018-05-02] MEDS ORDERED: LASIX 40 MG TAB40 M2 PO (22:34)
[2018-05-05] MEDS ORDERED: PROTONIX40 M1 PO (15:02)
[2018-05-05] MEDS ORDERED: PREDNISONE 10 M10 MG PO (15:02)
[2018-05-05] MEDS ORDERED: VENTOLIN HFA 1818 GM INH (15:02)
[2018-06-14] MEDS ORDERED: CLEOCIN HCL150 MG PO (09:44)
== END 2017-10-27 12:32 | disposition home or self-care (01) | DRG 291 ==
LOC: ER 12:26 → 2N 14:58 → EROBS 14:58 → 2N 15:26
PROVIDERS: Emergency Medicine; Hospitalist; Internal Medicine Cardiovascular Disease
DX: I13.0 Hypertensive heart and chronic kidney disease with heart failure and stage 1 through stage 4 chronic kidney disease, or unspecified chronic kidney disease (principal); I50.23 Acute on chronic systolic (congestive) heart failure; J44.9 Chronic obstructive pulmonary disease, unspecified; M10.9 Gout, unspecified; K21.9 Gastro-esophageal reflux disease without esophagitis; F17.210 Nicotine dependence, cigarettes, uncomplicated; N18.9 Chronic kidney disease, unspecified; K59.00 Constipation, unspecified; E86.0 Dehydration; K81.1 Chronic cholecystitis; F15.10 Other stimulant abuse, uncomplicated; Z90.49 Acquired absence of other specified parts of digestive tract
CPT/HCPCS: 10194

== ENCOUNTER 2017-10-29 23:14 | Inpatient (IN) | payer OTHER ==
[~2017-10-29] VITALS: Ht 175.3 cm; Wt 65.6 kg
--- NOTE | ~2017-10-29 | HC ---
[facility] [place] [address] CONSULTATION Name: TUTU BARRIGA Room #: 350-[facility] IN M.R.#: [id number] Admission: 10/30/17 Attend Phys: Stevan Coleman Discharge: 10/31/17 Date of : 57 Report #: [id number] THIS REPORT FOR: //name// CC: [facility] Coleman [facility] DATE OF SERVICE: 10/30/2017 REASON FOR CONSULTATION: Congestive heart failure. HISTORY OF PRESENT ILLNESS: The patient is a 62-year-old male with a nonischemic cardiomyopathy, presented with abdominal pain, weakness, and generalized failure to thrive. Reason for consult is that his cardiac troponin level is moderately elevated at 4.13. He came in with abdominal pain and hypotension, but no chest pain or pressure. His ECG did not show any acute abnormalities. On presentation, his ECG demonstrates a sinus rhythm, VPCs, left bundle branch block, which is chronic. At this point in this morning, he is resting comfortably, denies chest pain or shortness of breath. PAST MEDICAL HISTORY: Substance abuse, severe LV dysfunction, ejection fraction 10-15%, multiple hospitalizations for congestive heart failure, acalculous cholecystitis, tobacco use. SOCIAL HISTORY AND FAMILY HISTORY: Please see previously dictated summaries. REVIEW OF SYSTEMS: GASTROINTESTINAL: Positive nausea, no vomiting. HEMATOLOGIC: Positive anemia. No bleeding disorder. RENAL: History of kidney failure. CARDIOVASCULAR: Positive dyspnea with exertion, positive edema, positive orthopnea, positive PND. SKIN: No rashes. GENERAL: No fevers or chills. CURRENT MEDICATIONS: He is on Zosyn, albuterol, Atrovent, Aldactone 25 mg daily, potassium chloride 20 mEq daily, Lasix 40 mg p.o. b.i.d., Coreg 6.25 mg p.o. b.i.d., and baby aspirin. PHYSICAL EXAMINATION: GENERAL: He is resting comfortably, in no apparent distress. VITAL SIGNS: Blood pressure is 106/75. HEENT: Unremarkable. EOMs intact. No facial asymmetry. NECK: Supple. No jugular venous distention. CARDIOVASCULAR: Regular. I cannot hear rub or gallop. [facility] [address] [place] [address] CONSULTATION Name: TUTU BARRIGA Room #: 350-P [facility] IN M.R.#: [id number] Admission: 10/30/17 Attend Phys: Stevan Coleman Discharge: 10/31/17 Date of : 57 Report #: [id number] LUNGS: Clear to auscultation. ABDOMEN: Nontender, positive distention. EXTREMITIES: There is no peripheral edema. DIAGNOSTIC STUDIES: Abdominal ultrasound demonstrates unremarkable sonographic appearance of the abdomen. Chest x-ray shows no acute cardiopulmonary abnormality. IMPRESSION: 1. Abnormal troponin. Historically, he does not have a history of coronary artery disease, but I am sure he has some degree of diffuse coronary artery disease as he has continued to smoke and use methamphetamine, and there is no presentation compatible with acute coronary syndrome. He presented with abdominal pain and nausea, but no significant chest discomfort symptoms. After reviewing this with the patient overall, this evaluation invasively would not provide any meaningful survival advantage in this particular patient with severe left ventricular dysfunction and noncompliance. Thus, I recommend medical therapy with beta blockers and aspirin. It could be secondary to a hypotensive episode and low flow, a type 2 type myocardial infarction. 2. Congestive heart failure, chronic systolic dysfunction. He never took his medications on discharge and has a history of noncompliance with followups. I had a discussion with him and his regarding his overall poor prognosis and I would consider hospice or comfort care, and the patient is having some difficulty realizing his overall prognosis. These discussions have always been better made outpatient, but the patient has never followed up. 3. Chronic left bundle branch block. 4. Acalculous cholecystitis. He is not an operative candidate. We will certainly be available as needed, but he is pretty well volume managed from a heart failure standpoint as he was just recently discharged from hospital after milrinone infusion. <ELECTRONICALLY SIGNED> By: Turner Ignacio MD, FACC 11/12/17 0830 1423 1717 Turner Ignacio MD, FACC /nt
--- NOTE | ~2017-10-29 | HC ---
[facility] [place] [address] CONSULTATION Name: TUTU BARRIGA Room #: 350-P [facility] IN M.R.#: [id number] Admission: 10/30/17 Attend Phys: Stevan Coleman Discharge: Date of : 57 Report #: [id number] THIS REPORT FOR: //name// CC: Stevan Bhardwaj DATE OF SERVICE: 10/30/2017 REFERRING PROVIDER: Dr. Coleman. REASON FOR CONSULT: Recurrent abdominal pain. HISTORY OF PRESENT ILLNESS: The patient is a 62-year-old thin male with a history of multiple medical problems including CHF with an ejection fraction of 10%, COPD, hypertension, methamphetamine abuse who also has a history of acute acalculous cholecystitis for which he underwent placement of a percutaneous cholecystostomy tube in the past. The patient's symptoms at the time of his cholecystitis improved and ultimately he was found to have a patent cystic duct for which his cholecystostomy tube was removed. The patient has since had recurrent episodes of intermittent abdominal pain and has received a followup PIPIDA scan last admission, which showed patency of his entire biliary tree. The patient has had multiple episodes of worsening heart failure with fluid overload and continues to be noncompliant with cardiology followup. As the patient has been readmitted for abdominal pain, we are asked to follow once again. PAST MEDICAL HISTORY: Extensive and includes CHF, COPD, hypertension, tobacco abuse, methamphetamine abuse, prior acute kidney injury, multiple episodes of bronchitis among other things. HOME MEDICATIONS: Carvedilol, potassium, Lasix, spironolactone, aspirin and hydrocodone. ALLERGIES: No known drug allergies. SOCIAL HISTORY: The patient smokes greater than 1 pack of cigarettes daily and has done so for 40 years. He drinks alcohol frequently, but cannot quantify it and smokes methamphetamine every day. FAMILY HISTORY: Reviewed and noncontributory. REVIEW OF SYSTEMS: GENERAL: The patient denies nocturnal fevers or chills. HEENT: No change in vision, change in hearing. NECK: No swelling or difficulty swallowing. HEART: No chest pain, palpitations. [facility] [address] [place] [address] CONSULTATION Name: TUTU BARRIGA Room #: 350-[facility] IN M.R.#: [id number] Admission: 10/30/17 Attend Phys: Stevan Coleman Discharge: Date of : 57 Report #: [id number] LUNGS: No cough or shortness of breath. ABDOMEN: Abdominal pain, but with mild nausea, but no vomiting. GENITOURINARY: No dysuria or hematuria. ENDOCRINE: No polyuria, polydipsia. HEMATOLOGIC: No history of bleeding or easy bruising. EXTREMITIES: No history weakness or limited range of motion. NEUROLOGIC: No history of syncope or near syncopal episodes. SKIN AND INTEGUMENT: No history of abnormal lesions or moles. PSYCHIATRIC: No history of anxiety or depression. PHYSICAL EXAMINATION: VITAL SIGNS: Temperature 97.7, pulse 73, respirations 18, blood pressure 90/62 which is normal for him. He is 5 feet 9 inches tall and weighs 144 pounds. GENERAL: Alert and oriented, in no acute distress. HEENT: Normocephalic, atraumatic. Pupils equal, round and reactive to light. NECK: Supple without lymphadenopathy. Trachea midline. HEART: Regular rate and rhythm. LUNGS: Clear to auscultation bilaterally with decreased air entry at the bases bilaterally. ABDOMEN: Soft, nontender and nondistended. No guarding and no rebound. GENITOURINARY: Normal external male genitalia. EXTREMITIES: No clubbing, cyanosis or edema. NEUROLOGIC: Cranial nerves 2-12 are grossly intact. PSYCHIATRIC: Normal mood and affect. SKIN AND INTEGUMENT: No abnormal lesions or moles. LABORATORY AND X-RAY DATA: CBC shows white blood cell count of 20.2 thousand, hemoglobin 15.9 and platelets 375,000. Creatinine 2.4. Liver function enzymes show elevated AST, ALT and alkaline phosphatase, but normal bilirubin of 0.7 with a direct component of 0.2. Lactic acid is normal at 1.7. Troponin negative. X-ray shows no acute cardiopulmonary findings. Urinalysis is negative. ASSESSMENT AND PLAN: A 62-year-old male with severe congestive heart failure, COPD, methamphetamine abuse, significant tobaccoism and alcohol use who presents with recurrent abdominal pain and findings of a leukocytosis of unknown etiology. At the patient's most recent admission, he did have gallbladder wall thickening, but no evidence of active cholecystitis and again no evidence of cholelithiasis. The patient has undergone prior placement of a percutaneous cholecystostomy tube for acalculous cholecystitis, which was then subsequently removed as his biliary tree was found to be patent on cholangiogram. Followup PIPIDA scan showed persistent patency of his entire biliary tree. At this time, the patient does have an elevated white blood cell count with recurrent symptoms and as such we will obtain a repeat ultrasound and PIPIDA scan once again. If the PIPIDA again shows cholecystitis, our recommendation will be repeat percutaneous cholecystostomy tube as he is not a surgical candidate from his [address] [address] CONSULTATION Name: TUTU BARRIGA Room #: 350-P ADM IN M.R.#: [id number] Admission: 10/30/17 Attend Phys: Stevan Coleman Discharge: Date of : 57 Report #: [id number] comorbid conditions. We will follow along and leave any further recommendations in the patient's chart as appropriate. Sincerely appreciate this consult. <ELECTRONICALLY SIGNED> By: Maria De Jesus Wilson MD, FACS 10/31/17 1010 1014 1051 Maria De Jesus Wilson MD, FACS /nt
--- NOTE | ~2017-10-29 | EKG ---
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[place] [facility] [place] 1955 Requested By: Yazmin Valderrama Order Number: [id number] MD: Osmani Roe Measurements Intervals [place] Rate: 79 P: 70 NV: 200 QRS: -70 QRSD: 144 T: 120 QT: 459 QTc: 527 Interpretive Statements Sinus rhythm Biatrial enlargement Left bundle branch block Baseline wander in lead(s) V1,V2 Compared to ECG 10/23/2017 13:15:02 No significant changes Electronically Signed On 10-31-2017 13:55:50 CDT by Osmani Roe [email or web address] <ELECTRONICALLY SIGNED> By: Osmani Roe MD, FAC 10/31/17 1355 2319 2319 Osmani Roe MD, [facility] /EPI
[~2017-10-29 23:14] MED LIST changes: +LISINOPRIL2.5 MG PO; +METOLAZONE 5 MG5 MG PO
[2017-10-29 23:16] VITALS: BP 96/72
[2017-10-29 23:49] LABS: HEMATOCRIT 47.9 % (42.0-52.0); HEMOGLOBIN 15.9 gm/dL (14.0-18.0); MCHC 33.2 g/dL (28.0-37.0); MCV 78.2 fL (80.0-100.0); PLATELET COUNT 375 thou/uL (150-400); RBC 6.12 mil/uL (4.50-6.00); RDW 16.7 % (10.5-14.5); WBC 20.2 thou/uL (4.0-11.0)
[2017-10-29 23:56] LABS: ANION GAP 12 mmol/L (7-16); BUN 81 mg/dL (7-18); CALCIUM 10.1 mg/dL (8.5-10.1); CHLORIDE 87 mmol/L (98-107); CO2 29 mmol/L (21-32); CREATININE 2.4 mg/dL (0.7-1.3); GLUCOSE 124 mg/dL (74-106); POTASSIUM 4.4 mmol/L (3.5-5.1); SODIUM 128 mmol/L (136-145)
[2017-10-30 00:05] LABS: ALBUMIN 3.5 g/dL (3.4-5.0); DIRECT BILIRUBIN 0.2 mg/dL (<0.1-0.3); SGOT 61 U/L (15-37); SGPT 117 U/L (30-65); TOTAL BILIRUBIN 0.7 mg/dL (<0.1-1.0); TOTAL PROTEIN 10.3 g/dL (6.4-8.2); TROPONIN-I < 0.04 ng/mL (<0.06)
[2017-10-30 00:13] LABS: ABSOLUTE NEUTROPHILS 12.3 thou/uL (1.4-8.2); ANISOCYTOSIS 1+; LARGE PLATELETS RARE
[2017-10-30 03:47] VITALS: BP 103/75
[2017-10-30 03:50] VITALS: BP 86/64
[2017-10-30 08:02] VITALS: BP 90/62
[2017-10-30 09:20] LABS: URINE BILIRUBIN NEGATIVE (Negative); URINE BLOOD NEGATIVE (Negative); URINE CLARITY CLEAR; URINE COLOR YELLOW; URINE GLUCOSE-RANDOM* NEGATIVE (Negative); URINE KETONES NEGATIVE (Negative); URINE LEUKOCYTES NEGATIVE (Negative); URINE NITRITE NEGATIVE (Negative); URINE PROTEIN (DIPSTICK) NEGATIVE (Negative); URINE UROBILINOGEN 0.2 E.U./dl (0.2-1.0)
[2017-10-30 11:53] VITALS: BP 106/75
[2017-10-30 15:39] VITALS: BP 88/56
[2017-10-30 19:38] VITALS: BP 92/67
[2017-10-31] VITALS: BP 103/73
[2017-10-31 00:17] LABS: URINE BILIRUBIN NEGATIVE (Negative); URINE BLOOD NEGATIVE (Negative); URINE CLARITY CLEAR; URINE COLOR YELLOW; URINE GLUCOSE-RANDOM* NEGATIVE (Negative); URINE KETONES NEGATIVE (Negative); URINE LEUKOCYTES-REFLEX NEGATIVE (Negative); URINE NITRITE-REFLEX NEGATIVE (Negative); URINE PROTEIN (DIPSTICK) NEGATIVE (Negative); URINE UROBILINOGEN 0.2 E.U./dl (0.2-1.0)
[2017-10-31 03:28] VITALS: BP 99/68
[2017-10-31 03:41] LABS: ABSOLUTE NEUTROPHILS 7.5 thou/uL (1.4-8.2); BASOPHILS 0.6 % (0.0-2.0); EOSINOPHILS 2.2 % (0.0-3.0); HEMATOCRIT 44.6 % (42.0-52.0); HEMOGLOBIN 14.5 gm/dL (14.0-18.0); LYMPHOCYTES 29.8 % (24.0-44.0); MCH 25.9 pg (26.0-34.0); MCHC 32.4 g/dL (28.0-37.0); MONOCYTES 10.2 % (1.0-8.0); PLATELET COUNT 348 thou/uL (150-400); POLYS 57.2 % (36.0-66.0); RBC 5.58 mil/uL (4.50-6.00); RDW 16.3 % (10.5-14.5); WBC 13.2 thou/uL (4.0-11.0)
[2017-10-31 04:01] LABS: ALBUMIN 3.1 g/dL (3.4-5.0); CALCIUM 9.3 mg/dL (8.5-10.1); CREATININE 2.6 mg/dL (0.7-1.3); POTASSIUM 3.1 mmol/L (3.5-5.1); TOTAL BILIRUBIN 0.6 mg/dL (<0.1-1.0); TOTAL PROTEIN 9.3 g/dL (6.4-8.2)
[2017-10-31 07:57] VITALS: BP 108/77
[2017-10-31] MEDS ORDERED: NORCO 5-325 TA1 EACH PO (08:42)
[2017-10-31 10:30] VITALS: BP 108/77
[2017-10-31 10:54] VITALS: BP 108/77
[2017-11-15] MEDS ORDERED: PERCOCET 5-3251 EACH PO (12:31)
[2017-11-15] MEDS ORDERED: ONDANSETRON HCL4 M2 PO (12:38)
[2018-04-01] MEDS ORDERED: ZAROXOLYN 5MG TA5 MG PO (10:25)
[2018-04-01] MEDS ORDERED: COREG6.25 MG PO (10:25)
[2018-04-01] MEDS ORDERED: K-DUR 20 MEQ T20 MEQ PO (11:37)
[2018-05-02] MEDS ORDERED: LASIX 40 MG TAB40 M2 PO (22:34)
[2018-05-05] MEDS ORDERED: VENTOLIN HFA 1818 GM INH (15:02)
[2018-05-05] MEDS ORDERED: PREDNISONE 10 M10 MG PO (15:02)
[2018-05-05] MEDS ORDERED: PROTONIX40 M1 PO (15:02)
[2018-06-14] MEDS ORDERED: CLEOCIN HCL150 MG PO (09:44)
== END 2017-10-31 11:44 | disposition home or self-care (01) | DRG 392 ==
LOC: ER 23:14 → EROBS 10-30 02:49 → 3W 10-30 03:48
PROVIDERS: Emergency Medicine; Hospitalist; Nurse Practitioner Acute Care
DX: R10.9 Unspecified abdominal pain (principal); I42.9 Cardiomyopathy, unspecified; I50.22 Chronic systolic (congestive) heart failure; I13.0 Hypertensive heart and chronic kidney disease with heart failure and stage 1 through stage 4 chronic kidney disease, or unspecified chronic kidney disease; K21.9 Gastro-esophageal reflux disease without esophagitis; J44.9 Chronic obstructive pulmonary disease, unspecified; I44.7 Left bundle-branch block, unspecified; F15.10 Other stimulant abuse, uncomplicated; K81.9 Cholecystitis, unspecified; N18.3 Chronic kidney disease, stage 3 (moderate); I95.9 Hypotension, unspecified; M10.9 Gout, unspecified; F17.210 Nicotine dependence, cigarettes, uncomplicated; Z79.82 Long term (current) use of aspirin; Z79.899 Other long term (current) drug therapy
CPT/HCPCS: 10779

== ENCOUNTER 2018-02-04 21:11 | Observation (INO) | payer OTHER ==
[~2018-02-04] VITALS: Ht 175.3 cm; Wt 72.6 kg
--- NOTE | ~2018-02-04 | EKG ---
[place] [address] [place] [address] ELECTROCARDIOGRAM REPORT Name: TUTU BARRIGA Room #: 215-P [facility].#: [id number] Admission: 02/04/18 Attend Phys: Stevan Coleman Discharge: 02/05/18 Date of : 57 Report #: [id number] THIS REPORT FOR: //name// 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: [employer] : 1955 Requested By: Aditya Steve Order Number: [id number] MD: Osmani Roe Measurements Intervals [place] Rate: 101 P: 61 MT: 193 QRS: -67 QRSD: 138 T: 109 QT: 402 QTc: 522 Interpretive Statements Sinus tachycardia Biatrial enlargement Left bundle branch block Compared to ECG 10/29/2017 23:19:25 No significant change was found Electronically Signed On 02-07-2018 9:10:33 CDT by Osmani Roe [email or web address] <ELECTRONICALLY SIGNED> By: Osmani Roe MD, [facility] 02/07/18909 18 18 Osmani Roe MD, [facility] /EPI
[~2018-02-04 21:11] MED LIST changes: +ALDACTONE25 MG PO; +CARVEDILOL6.25 MG PO; -COREG6.25 MG PO; +ONDANSETRON HCL4 M2 PO; +PERCOCET 5-3251 EACH PO; -SPIRONOLACTONE25 M1 PO
[2018-02-04 21:21] VITALS: BP 106/78
[2018-02-04] MEDS ORDERED: ENTRESTO 49 MG1 EACH PO (21:46)
[2018-02-04 22:14] LABS: HCO3 25.3 mmol/L (22.0-26.0); PCO2 31.9 mmHg (35.0-45.0); PO2 77.3 mmHg (80.0-100.0); pH 7.518 (7.360-7.450); sO2 96.6 % (92.0-98.0)
[2018-02-04 22:21] LABS: ABSOLUTE NEUTROPHILS 5.2 thou/uL (1.4-8.2); BASOPHILS 0.9 % (0.0-2.0); EOSINOPHILS 2.3 % (0.0-3.0); HEMATOCRIT 41.9 % (42.0-52.0); HEMOGLOBIN 13.8 gm/dL (14.0-18.0); LYMPHOCYTES 43.6 % (24.0-44.0); MCH 25.6 pg (26.0-34.0); MCHC 32.8 g/dL (28.0-37.0); MCV 77.8 fL (80.0-100.0); MONOCYTES 7.7 % (1.0-8.0); PLATELET COUNT 251 thou/uL (150-400); POLYS 45.5 % (36.0-66.0); RBC 5.38 mil/uL (4.50-6.00); RDW 20.1 % (10.5-14.5); WBC 11.4 thou/uL (4.0-11.0)
[2018-02-04 22:28] LABS: ANION GAP 10 mmol/L (7-16); BUN 63 mg/dL (7-18); CALCIUM 9.2 mg/dL (8.5-10.1); CHLORIDE 95 mmol/L (98-107); CO2 31 mmol/L (21-32); CREATININE 1.9 mg/dL (0.7-1.3); GLUCOSE 111 mg/dL (74-106); POTASSIUM 3.5 mmol/L (3.5-5.1); SODIUM 136 mmol/L (136-145)
[2018-02-04 22:33] LABS: APTT 27.1 Seconds (24.5-32.8); INR 1.3; PROTIME 12.8 Seconds (9.3-11.4)
[2018-02-04 22:35] LABS: ALBUMIN 3.3 g/dL (3.4-5.0); MAGNESIUM 2.4 mg/dL (1.8-2.4); SGOT 39 U/L (15-37); SGPT 29 U/L (30-65); TOTAL BILIRUBIN 1.2 mg/dL (<0.1-1.0); TOTAL PROTEIN 9.3 g/dL (6.4-8.2); TROPONIN-I <0.06 ng/mL (<0.06)
[2018-02-04 23:55] VITALS: BP 100/71
[2018-02-05 00:10] VITALS: BP 100/71
[2018-02-05 00:30] VITALS: BP 110/76
[2018-02-05 04:10] VITALS: BP 100/70
[2018-02-05 08:15] VITALS: BP 101/70
[2018-02-05] MEDS ORDERED: ENTRESTO 49 MG1 EACH PO (10:03)
[2018-02-05 10:14] VITALS: BP 101/70
== END 2018-02-05 10:46 | disposition home or self-care (01) ==
LOC: ER 21:11 → EROBS 23:33 → 2N 02-05 00:11
PROVIDERS: Emergency Medicine
DX: I50.23 Acute on chronic systolic (congestive) heart failure (principal); E87.3 Alkalosis; N18.3 Chronic kidney disease, stage 3 (moderate); Z91.19 Patient's noncompliance with other medical treatment and regimen; K82.8 Other specified diseases of gallbladder; J44.9 Chronic obstructive pulmonary disease, unspecified; K21.9 Gastro-esophageal reflux disease without esophagitis; I95.9 Hypotension, unspecified; F17.210 Nicotine dependence, cigarettes, uncomplicated; Z79.899 Other long term (current) drug therapy

== ENCOUNTER 2018-02-16 07:29 | Emergency (ER) | payer OTHER ==
[~2018-02-16] VITALS: Ht 175.3 cm; Wt 72.6 kg
[2018-02-16] MEDS ORDERED: PERCOCET 5-3251 EACH PO (08:44)
== END 2018-02-16 08:55 | disposition home or self-care (01) ==
LOC: ER 07:29
DX: M79.601 Pain in right arm (principal); M54.10 Radiculopathy, site unspecified; M25.511 Pain in right shoulder; R20.0 Anesthesia of skin; R20.2 Paresthesia of skin; F17.210 Nicotine dependence, cigarettes, uncomplicated; I50.9 Heart failure, unspecified; M10.9 Gout, unspecified; N18.3 Chronic kidney disease, stage 3 (moderate); I95.9 Hypotension, unspecified; K21.9 Gastro-esophageal reflux disease without esophagitis

== ENCOUNTER 2018-02-18 10:31 | Inpatient (IN) | payer OTHER ==
[~2018-02-18] VITALS: Ht 175.3 cm; Wt 72.6 kg
--- NOTE | ~2018-02-18 | EKG ---
[place] [address] [address] [facility] [place] [address] ELECTROCARDIOGRAM REPORT Name: TUTU BARRIGA Room #: 356-P ADM IN M.R.#: [id number] Admission: 02/18/18 Attend Phys: Cory Hui MD Discharge: Date of : 57 Report #: [id number] THIS REPORT FOR: //name// [facility] ED Test Date: 2018-02-18 Test Time: 11:02:31 Pat Name: TUTU BARRIGA Department: Room: Gender: M Manager Credit Risk: KF : 1955 Requested By: Tra Vang Order Number: [id number] MD: Roni Hassan Measurements Intervals [place] Rate: 89 P: 75 CT: 192 QRS: -69 QRSD: 138 T: 87 QT: 413 QTc: 503 Interpretive Statements Sinus rhythm Biatrial enlargement Left bundle branch block Compared to ECG 02/08/2018 07:50:14 Sinus tachycardia no longer present Electronically Signed On 02-19-2018 11:02:38 CDT by Roni Hassan [email or web address] <ELECTRONICALLY SIGNED> By: Roni Hassan MD 02/19/18 1102 110 1102 MD MARILU Beltran
--- NOTE | ~2018-02-18 | HC ---
[facility] [place] [address] CONSULTATION Name: TUTU BARRIGA Room #: 356-P [facility] IN M.R.#: [id number] Admission: 02/18/18 Attend Phys: Cory Hui MD Discharge: 02/20/18 Date of : 57 Report #: [id number] THIS REPORT FOR: //name// CC: Cory Bhardwaj REASON FOR CONSULTATION: Elevated creatinine. REASON FOR PRESENTATION: Nausea, vomiting. HISTORY OF PRESENT ILLNESS: A 62-year-old with past medical history of severe cardiomyopathy, ejection fractions of around 10%. He is also known to have substance abuse including methamphetamines in the past. He had major issues with his heart in the past. He was supposed to get a LifeVest, but this was declined. He is not a transplant candidate, candidate for AICD because of methamphetamine use. He was supposed to continue with milrinone infusion, but has not been compliant with that. He presented yesterday complaining of persistent nausea, vomiting and inability to take anything by mouth in the last few days. EGD was done and this revealed several gastric ulcers, duodenal ulcers, esophagitis. He was found to have an elevated creatinine, hyperkalemia and I am being consulted to manage his chronic kidney disease. Looking back, it does look like that his creatinine has been fluctuating, had been as low as 1.5 back in 2017; however, it has been persistently elevated in the last year or so. He carries a diagnosis of severe cardiomyopathy, COPD, chronic kidney disease. He does not see a kidney doctor. PAST MEDICAL HISTORY: 1. Cardiomyopathy with an ejection fraction of 10%. 2. Chronic kidney disease. 3. COPD. 4. Cholecystitis. MEDICATIONS: I am not really sure if he is taking those or not include the followin. Carvedilol. 2. Aldactone. 3. Lasix. 4. Entresto. FAMILY HISTORY: Hypertension. ALLERGIES: No known drug allergies. REVIEW OF SYSTEMS: GENERAL: No fever or chills. CARDIOVASCULAR: No chest pain or palpitation. PULMONARY: No cough or hemoptysis. [facility] [address] [place] [address] CONSULTATION Name: TUTU BARRIGA Room #: 356-P [facility] IN ..#: [id number] Admission: 02/18/18 Attend Phys: Cory Hui MD Discharge: 02/20/18 Date of : 57 Report #: [id number] GASTROINTESTINAL: As per the history of present illness. GENITOURINARY: No frequency, no urgency. SKIN: No rash or ulcerations. PHYSICAL EXAMINATION: GENERAL: He is alert, oriented, in no apparent distress. VITAL SIGNS: Blood pressure is 107/66. HEAD AND NECK: No jugular venous distention, no bruit, no thyromegaly. CHEST: Decreased air entry bilaterally. CARDIOVASCULAR: No rub detected. ABDOMEN: Soft, nontender with no hepatosplenomegaly. LOWER EXTREMITIES: +2 edema. LABORATORY VALUES: Reviewed. White blood cell count on presentation was 25.8, it is down to 15.9; hemoglobin was 12.8 and is down to 12. Chemistry revealed a potassium of 5.5, BUN of 104, creatinine of 3.9. ASSESSMENT, IMPRESSION, PLAN: 1. Chronic kidney disease, advanced. 2. Acute kidney injury. 3. Hyperkalemia. 4. Multiple gastric and duodenal ulcers. 5. Hyperphosphatemia. 6. Leukocytosis. He does have chronic kidney disease related to his substance abuse, cardiomyopathy. His creatinine seems to be trending down. His hyperkalemia was due to his medications and the gastrointestinal bleeding. I will send limited chronic kidney disease workup. Encourage compliance with medical care. Continue with the current gastrointestinal management for his ulcers and esophagitis. Potassium is trending down appropriately. Hold spironolactone. With his noncompliance of medical care, the management of his chronic kidney disease will be very complicated. [address] [address] CONSULTATION Name: TUTU BARRIGA Room #: 356-P [facility] IN M.R.#: [id number] Admission: 02/18/18 Attend Phys: Cory Hui MD Discharge: 02/20/18 Date of : 57 Report #: [id number] Leukocytosis. We will defer to the primary team. <ELECTRONICALLY SIGNED> By: Gab Sue MD 02/21/18 0634 0717 0939 Gab Sue MD /jeannette
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
[~2018-02-18 10:31] MED LIST changes: -ALDACTONE25 MG PO; -CARVEDILOL6.25 MG PO; +COREG6.25 MG PO; +SPIRONOLACTONE25 M1 PO
[2018-02-18 10:35] VITALS: BP 136/92
[2018-02-18 11:05] LABS: HEMATOCRIT 40.1 % (42.0-52.0); HEMOGLOBIN 12.8 gm/dL (14.0-18.0); MCH 25.2 pg (26.0-34.0); MCHC 31.9 g/dL (28.0-37.0); MCV 79.1 fL (80.0-100.0); PLATELET COUNT 237 thou/uL (150-400); RBC 5.07 mil/uL (4.50-6.00); RDW 19.6 % (10.5-14.5); WBC 25.8 thou/uL (4.0-11.0)
[2018-02-18 11:19] LABS: ANION GAP 14 mmol/L (7-16); BUN 106 mg/dL (7-18); CALCIUM 9.7 mg/dL (8.5-10.1); CHLORIDE 95 mmol/L (98-107); CO2 23 mmol/L (21-32); CREATININE 4.4 mg/dL (0.7-1.3); GLUCOSE 146 mg/dL (74-106); POTASSIUM 5.9 mmol/L (3.5-5.1); SODIUM 132 mmol/L (136-145)
[2018-02-18 11:27] LABS: ALBUMIN 3.1 g/dL (3.4-5.0); LIPASE 36 U/L (73-393); SGOT 161 U/L (15-37); SGPT 158 U/L (30-65); TOTAL BILIRUBIN 1.2 mg/dL (<0.1-1.0); TROPONIN-I <0.06 ng/mL (<0.06)
[2018-02-18 12:32] LABS: ABSOLUTE NEUTROPHILS 23.7 thou/uL (1.4-8.2); ANISOCYTOSIS 1+; PLATELET ESTIMATE NORMAL
[2018-02-18 13:10] VITALS: BP 128/60
[2018-02-18 13:58] VITALS: BP 144/80
[2018-02-18 16:34] VITALS: BP 111/78
[2018-02-18 16:37] LABS: HEMATOCRIT 39.3 % (42.0-52.0); HEMOGLOBIN 12.4 gm/dL (14.0-18.0)
[2018-02-18 19:15] VITALS: BP 104/73
[2018-02-19 03:54] VITALS: BP 107/66
[2018-02-19 06:17] LABS: HEMATOCRIT 37.5 % (42.0-52.0); MCH 25.2 pg (26.0-34.0); MCHC 31.9 g/dL (28.0-37.0); MCV 78.9 fL (80.0-100.0); RBC 4.75 mil/uL (4.50-6.00); RDW 18.9 % (10.5-14.5); WBC 15.9 thou/uL (4.0-11.0)
[2018-02-19 06:33] LABS: ALBUMIN 2.6 g/dL (3.4-5.0); CALCIUM 8.5 mg/dL (8.5-10.1); CREATININE 3.9 mg/dL (0.7-1.3); POTASSIUM 5.5 mmol/L (3.5-5.1)
[2018-02-19 07:26] VITALS: BP 107/68
[2018-02-19 08:50] LABS: URINE BILIRUBIN NEGATIVE (Negative); URINE BLOOD 3+ (Negative); URINE CLARITY CLEAR; URINE COLOR YELLOW; URINE GLUCOSE-RANDOM* NEGATIVE (Negative); URINE KETONES NEGATIVE (Negative); URINE PROTEIN (DIPSTICK) TRACE (Negative); URINE SPECIFIC GRAVITY 1.015 (1.005-1.035); URINE UROBILINOGEN 0.2 E.U./dl (0.2-1.0)
[2018-02-19 09:10] LABS: URINE LEUKOCYTES-REFLEX 3+ (Negative); URINE NITRITE-REFLEX POSITIVE (Negative)
[2018-02-19 09:11] LABS: BACTERIA-REFLEX >30 Many /HPF (None Seen); CASTS None Seen /LPF (None Seen); CRYSTALS None Seen /LPF (None Seen); MUCUS 0-3 Light strn/LPF (None Seen); SQUAMOUS 0-3 Few /LPF (0-3); URINE RBC 3-10 Few /HPF (0-2); URINE WBC-REFLEX >25 Many /HPF (0-5); WBC CLUMPS Many (None Seen)
[2018-02-19 12:35] VITALS: BP 104/74
[2018-02-19 14:21] LABS: HEMATOCRIT 36.1 % (42.0-52.0); HEMOGLOBIN 11.6 gm/dL (14.0-18.0)
[2018-02-19 15:59] VITALS: BP 106/69
[2018-02-19 19:08] VITALS: BP 112/80
[2018-02-20 00:06] VITALS: BP 103/74
[2018-02-20 03:29] VITALS: BP 123/70
[2018-02-20 06:43] LABS: HEMOGLOBIN 12.3 gm/dL (14.0-18.0); MCH 25.4 pg (26.0-34.0); MCHC 32.2 g/dL (28.0-37.0); MCV 78.7 fL (80.0-100.0); RBC 4.83 mil/uL (4.50-6.00); RDW 19.3 % (10.5-14.5); WBC 9.4 thou/uL (4.0-11.0)
[2018-02-20 07:09] LABS: ALBUMIN 2.7 g/dL (3.4-5.0); CALCIUM 8.3 mg/dL (8.5-10.1); PHOSPHORUS 3.4 mg/dL (2.5-4.9); POTASSIUM 4.1 mmol/L (3.5-5.1); TOTAL BILIRUBIN 1.2 mg/dL (<0.1-1.0); TOTAL PROTEIN 6.9 g/dL (6.4-8.2)
[2018-02-20 07:10] LABS: CREATININE 2.8 mg/dL (0.7-1.3)
[2018-02-20 07:24] VITALS: BP 117/82
[2018-02-20] MEDS ORDERED: PROTONIX40 M1 PO (09:23)
[2018-02-20 09:30] VITALS: BP 117/82
== END 2018-02-20 09:59 | disposition home or self-care (01) | DRG 378 ==
LOC: ER 10:31 → EROBS 12:47 → 3W 13:34
PROVIDERS: Hospitalist; Nurse Practitioner; Physician Assistant; Specialist
PROC: 0DB38ZX Excision of Lower Esophagus, Via Natural or Artificial Opening Endoscopic, Diagnostic (ICD-10-PCS; principal; 2018-02-18)
DX: K92.2 Gastrointestinal hemorrhage, unspecified (principal); I13.0 Hypertensive heart and chronic kidney disease with heart failure and stage 1 through stage 4 chronic kidney disease, or unspecified chronic kidney disease; I42.9 Cardiomyopathy, unspecified; I50.22 Chronic systolic (congestive) heart failure; N17.9 Acute kidney failure, unspecified; K26.9 Duodenal ulcer, unspecified as acute or chronic, without hemorrhage or perforation; N18.3 Chronic kidney disease, stage 3 (moderate); D64.9 Anemia, unspecified; E78.5 Hyperlipidemia, unspecified; T39.395A Adverse effect of other nonsteroidal anti-inflammatory drugs [NSAID], initial encounter; M10.9 Gout, unspecified; F17.210 Nicotine dependence, cigarettes, uncomplicated; K21.0 Gastro-esophageal reflux disease with esophagitis; K25.9 Gastric ulcer, unspecified as acute or chronic, without hemorrhage or perforation; K44.9 Diaphragmatic hernia without obstruction or gangrene; J44.9 Chronic obstructive pulmonary disease, unspecified; E83.39 Other disorders of phosphorus metabolism; F10.10 Alcohol abuse, uncomplicated; E87.5 Hyperkalemia; F19.10 Other psychoactive substance abuse, uncomplicated; D72.829 Elevated white blood cell count, unspecified; Y90.9 Presence of alcohol in blood, level not specified; Y92.89 Other specified places as the place of occurrence of the external cause; Z90.49 Acquired absence of other specified parts of digestive tract; Z91.14 Patient's other noncompliance with medication regimen; Z82.49 Family history of ischemic heart disease and other diseases of the circulatory system; Z86.14 Personal history of Methicillin resistant Staphylococcus aureus infection
CPT/HCPCS: 10779; 62110; 62900

== ENCOUNTER 2018-03-04 13:50 | Inpatient (IN) | payer OTHER ==
[~2018-03-04] VITALS: Ht 175.3 cm; Wt 72.3 kg
--- NOTE | ~2018-03-04 | EKG ---
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 : 1955 Requested By: Aditya Steve Order Number: [id number] MD: Osmani Roe Measurements Intervals [place] Rate: 94 P: 71 [place]: 200 QRS: -61 QRSD: 127 T: 102 QT: 416 QTc: 521 Interpretive Statements Sinus rhythm Biatrial enlargement LEFT VENTRICULAR HYPERTROPHY with repolarization abnormality Compared to ECG 02/18/2018 11:02:31 No significant changes Electronically Signed On 03-04-2018 15:00:45 CDT by Osmani Reo [email or web address] <ELECTRONICALLY SIGNED> By: Osmani Roe MD, [facility] 03/04/18 1500 1410 1410 Osmani Roe MD, FACC /EPI
[~2018-03-04 13:50] MED LIST changes: +PROTONIX40 M1 PO
[2018-03-04 14:04] VITALS: BP 112/76
[2018-03-04 15:09] LABS: ABSOLUTE NEUTROPHILS 7.4 thou/uL (1.4-8.2); BASOPHILS 0.8 % (0.0-2.0); EOSINOPHILS 0.9 % (0.0-3.0); HEMATOCRIT 40.3 % (42.0-52.0); HEMOGLOBIN 12.8 gm/dL (14.0-18.0); LYMPHOCYTES 29.3 % (24.0-44.0); MCH 24.2 pg (26.0-34.0); MCHC 31.8 g/dL (28.0-37.0); MCV 76.3 fL (80.0-100.0); MONOCYTES 8.2 % (1.0-8.0); PLATELET COUNT 221 thou/uL (150-400); POLYS 60.8 % (36.0-66.0); RBC 5.29 mil/uL (4.50-6.00); RDW 18.3 % (10.5-14.5); WBC 12.2 thou/uL (4.0-11.0)
[2018-03-04] MEDS ORDERED: LASIX 40 MG TAB40 M2 PO (15:17)
[2018-03-04] MEDS ORDERED: KEFLEX500 M1 PO (15:17)
[2018-03-04 15:19] LABS: ANION GAP 7 mmol/L (7-16); BUN 27 mg/dL (7-18); CALCIUM 8.5 mg/dL (8.5-10.1); CHLORIDE 97 mmol/L (98-107); CO2 33 mmol/L (21-32); CREATININE 1.5 mg/dL (0.7-1.3); GLUCOSE 136 mg/dL (74-106); SODIUM 137 mmol/L (136-145)
[2018-03-04 15:21] LABS: POTASSIUM 2.9 mmol/L (3.5-5.1)
[2018-03-04 15:26] LABS: ALBUMIN 2.8 g/dL (3.4-5.0); MAGNESIUM 1.7 mg/dL (1.8-2.4); SGOT 19 U/L (15-37); SGPT 23 U/L (30-65); TOTAL BILIRUBIN 1.4 mg/dL (<0.1-1.0); TOTAL PROTEIN 7.1 g/dL (6.4-8.2); TROPONIN-I <0.06 ng/mL (<0.06)
[2018-03-04 15:29] LABS: APTT 26.3 Seconds (24.5-32.8); INR 1.3; PROTIME 12.8 Seconds (9.3-11.4)
[2018-03-04 15:51] LABS: ANISOCYTOSIS 2+; BURR CELLS OCCASIONAL; OVALOCYTES 1+; SCHISTOCYTES OCCASIONAL
[2018-03-04 17:09] VITALS: BP 118/92
[2018-03-04 17:34] VITALS: BP 115/91
[2018-03-04 18:31] VITALS: BP 113/78
[2018-03-04 19:37] VITALS: BP 94/65
[2018-03-04 23:25] VITALS: BP 101/54
[2018-03-05 04:56] VITALS: BP 106/72
[2018-03-05 08:05] LABS: HEMATOCRIT 38.4 % (42.0-52.0); HEMOGLOBIN 12.1 gm/dL (14.0-18.0); MCH 24.1 pg (26.0-34.0); MCHC 31.4 g/dL (28.0-37.0); MCV 76.6 fL (80.0-100.0); RBC 5.01 mil/uL (4.50-6.00); RDW 18.9 % (10.5-14.5); WBC 7.2 thou/uL (4.0-11.0)
[2018-03-05 08:20] VITALS: BP 103/69
[2018-03-05 08:20] LABS: CREATININE 1.9 mg/dL (0.7-1.3); MAGNESIUM 1.7 mg/dL (1.8-2.4)
[2018-03-05 08:21] LABS: POTASSIUM 4.2 mmol/L (3.5-5.1); POTASSIUM 4.4 mmol/L (3.5-5.1)
[2018-03-05 10:55] VITALS: BP 94/57
[2018-03-05] MEDS ORDERED: LEVAQUIN 750 M750 MG PO (11:40)
[2018-03-05] MEDS ORDERED: PREDNISONE 10 M10 MG PO (11:41)
[2018-03-05 11:59] VITALS: BP 94/57
== END 2018-03-05 12:35 | disposition home or self-care (01) | DRG 291 ==
LOC: ER 13:50 → EROBS 16:19 → 2N 17:40
PROVIDERS: Emergency Medicine; Hospitalist; Nurse Practitioner Acute Care
DX: I50.23 Acute on chronic systolic (congestive) heart failure (principal); J18.9 Pneumonia, unspecified organism; J44.1 Chronic obstructive pulmonary disease with (acute) exacerbation; J44.0 Chronic obstructive pulmonary disease with (acute) lower respiratory infection; R07.89 Other chest pain; N18.3 Chronic kidney disease, stage 3 (moderate); E87.6 Hypokalemia; M10.9 Gout, unspecified; F17.210 Nicotine dependence, cigarettes, uncomplicated; K21.9 Gastro-esophageal reflux disease without esophagitis; F15.10 Other stimulant abuse, uncomplicated; Z91.19 Patient's noncompliance with other medical treatment and regimen; Z72.89 Other problems related to lifestyle; Z87.19 Personal history of other diseases of the digestive system
CPT/HCPCS: 10081

== ENCOUNTER 2018-05-07 11:40 | Inpatient (IN) | payer OTHER ==
[~2018-05-07] VITALS: Ht 175.3 cm; Wt 69.9 kg
--- NOTE | ~2018-05-07 | EKG ---
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
[~2018-05-07 11:40] MED LIST changes: +KEFLEX500 M1 PO; +LEVAQUIN 750 M750 MG PO; +PREDNISONE 10 M10 MG PO; +VENTOLIN HFA 1818 GM INH; +ZAROXOLYN 5MG TA5 MG PO
[2018-05-07 11:42] VITALS: BP 122/95
[2018-05-07 12:25] LABS: ABSOLUTE NEUTROPHILS 9.9 thou/uL (1.4-8.2); BASOPHILS 0.6 % (0.0-2.0); HEMATOCRIT 40.8 % (42.0-52.0); LYMPHOCYTES 17.7 % (24.0-44.0); MCH 22.2 pg (26.0-34.0); MCHC 31.3 g/dL (28.0-37.0); MONOCYTES 5.7 % (1.0-8.0); RBC 5.74 mil/uL (4.50-6.00); RDW 22.9 % (10.5-14.5); WBC 13.1 thou/uL (4.0-11.0)
[2018-05-07 12:28] LABS: HEMOGLOBIN 12.8 gm/dL (14.0-18.0); PLATELET COUNT 293 thou/uL (150-400)
[2018-05-07 12:36] LABS: CALCIUM 9.7 mg/dL (8.5-10.1); CREATININE 1.8 mg/dL (0.7-1.3); POTASSIUM 3.2 mmol/L (3.5-5.1)
[2018-05-07 12:38] LABS: APTT 23.8 Seconds (24.5-32.8); INR 1.2; PROTIME 12.7 Seconds (9.3-11.4)
[2018-05-07 12:42] LABS: ALBUMIN 2.9 g/dL (3.4-5.0); DIRECT BILIRUBIN 1.2 mg/dL (<0.1-0.3); TOTAL BILIRUBIN 1.8 mg/dL (<0.1-1.0); TOTAL PROTEIN 7.8 g/dL (6.4-8.2)
[2018-05-07 13:57] LABS: ANISOCYTOSIS 2+; HYPOCHROMASIA 2+; MACROCYTES 1+; MICROCYTES 1+; POLYCHROMASIA SLIGHT
[2018-05-07 13:58] LABS: BURR CELLS FEW; OVALOCYTES 1+; POIKILOCYTOSIS 1+
[2018-05-07 14:56] VITALS: BP 133/101
[2018-05-07 16:17] VITALS: BP 136/96
[2018-05-07 16:38] VITALS: BP 113/83
[2018-05-07 20:05] VITALS: BP 107/83
[2018-05-08 00:16] VITALS: BP 117/82
[2018-05-08 04:01] VITALS: BP 114/88
[2018-05-08 07:31] LABS: HEMATOCRIT 40.7 % (42.0-52.0); HEMOGLOBIN 13.1 gm/dL (14.0-18.0); MCH 22.7 pg (26.0-34.0); MCHC 32.1 g/dL (28.0-37.0); MCV 70.7 fL (80.0-100.0); RBC 5.77 mil/uL (4.50-6.00); RDW 22.4 % (10.5-14.5); WBC 11.2 thou/uL (4.0-11.0)
[2018-05-08 07:44] LABS: CALCIUM 10.1 mg/dL (8.5-10.1); CREATININE 1.8 mg/dL (0.7-1.3)
[2018-05-08 09:11] VITALS: BP 110/71
[2018-05-08 20:31] VITALS: BP 114/79
[2018-05-09 05:40] VITALS: BP 115/78
[2018-05-09 07:50] VITALS: BP 97/54
[2018-05-09 12:36] LABS: HEMATOCRIT 41.7 % (42.0-52.0); MCH 22.1 pg (26.0-34.0); MCHC 31.2 g/dL (28.0-37.0); MCV 70.6 fL (80.0-100.0); RBC 5.91 mil/uL (4.50-6.00); RDW 22.6 % (10.5-14.5); WBC 11.2 thou/uL (4.0-11.0)
[2018-05-09 12:51] LABS: ALBUMIN 2.7 g/dL (3.4-5.0); BUN 52 mg/dL (7-18); CALCIUM 9.6 mg/dL (8.5-10.1); CHLORIDE 90 mmol/L (98-107); CREATININE 1.5 mg/dL (0.7-1.3); GLUCOSE 119 mg/dL (74-106); SGOT 26 U/L (15-37); SGPT 18 U/L (30-65); SODIUM 135 mmol/L (136-145); TOTAL BILIRUBIN 3.7 mg/dL (<0.1-1.0); TOTAL PROTEIN 7.1 g/dL (6.4-8.2)
[2018-05-09 13:08] LABS: CO2 > 45 mmol/L (21-32); POTASSIUM 2.4 mmol/L (3.5-5.1)
[2018-05-09 16:49] VITALS: BP 97/70
[2018-05-09 18:55] LABS: AMP/METHAMP Negative (Negative); BARBITURATES Negative (Negative); BENZODIAZEPINES Negative (Negative); COCAINE Negative (Negative); METHADONE Negative (Negative); OPIATES Negative (Negative); PCP Negative (Negative)
[2018-05-09 19:33] VITALS: BP 85/56
[2018-05-09 22:52] VITALS: BP 98/70
[2018-05-10 05:45] VITALS: BP 102/69
[2018-05-10 07:08] VITALS: BP 84/49
[2018-05-10] MEDS ORDERED: ZOFRAN ODT4 MG DISSOLVE (10:03)
[2018-05-10 10:23] VITALS: BP 106/73
[2018-05-10 10:52] VITALS: BP 106/73
== END 2018-05-10 11:01 | disposition home or self-care (01) | DRG 947 ==
LOC: ER 11:40 → EROBS 13:46 → 3W 16:05 → ENTRNSPT 05-10 10:37 → EDTRNSPTSTS 05-10 10:41 → 3W 05-10 11:01
PROVIDERS: Emergency Medicine; Hospitalist; Surgery
DX: R18.8 Other ascites (principal); E43 Unspecified severe protein-calorie malnutrition; E87.2 Acidosis; K82.8 Other specified diseases of gallbladder; I50.9 Heart failure, unspecified; E87.6 Hypokalemia; K21.9 Gastro-esophageal reflux disease without esophagitis; M10.9 Gout, unspecified; J44.9 Chronic obstructive pulmonary disease, unspecified; F17.210 Nicotine dependence, cigarettes, uncomplicated; F15.10 Other stimulant abuse, uncomplicated; F10.10 Alcohol abuse, uncomplicated; N18.3 Chronic kidney disease, stage 3 (moderate); Y90.9 Presence of alcohol in blood, level not specified; R74.0 Nonspecific elevation of levels of transaminase and lactic acid dehydrogenase [LDH]; Z68.22 Body mass index [BMI] 22.0-22.9, adult; Z79.899 Other long term (current) drug therapy; Z86.14 Personal history of Methicillin resistant Staphylococcus aureus infection
CPT/HCPCS: 10879

== ENCOUNTER 2018-05-12 14:09 | Inpatient (IN) | payer OTHER ==
[~2018-05-12] VITALS: Ht 175.3 cm; Wt 63.7 kg
--- NOTE | ~2018-05-12 | EKG ---
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 Repairer: : 1955 Requested By: Kirill Fine Order Number: [id number] MD: Pankaj Pierson Measurements Intervals [place] Rate: 89 P: 58 [place]: 207 QRS: -58 QRSD: 124 T: 116 QT: 432 QTc: 526 Interpretive Statements Sinus rhythm Left atrial enlargement Left bundle branch block Compared to ECG 05/07/2018 12:01:34 Left bundle-branch block now present Intraventricular conduction delay no longer present Electronically Signed On 05-13-2018 9:04:25 CDT by Pankaj Pierson [email or web address] <ELECTRONICALLY SIGNED> By: Pankaj Pierson MD 05/13/18 0904 1457 1457 Pankaj Pierson MD /[facility]
--- NOTE | ~2018-05-12 | HC ---
[facility] [place] [address] CONSULTATION Name: TUTU BARRIGA Room #: 212-P [facility] IN M.R.#: [id number] Admission: 05/12/18 Attend Phys: Stevan Coleman Discharge: 05/14/18 Date of : 57 Report #: [id number] THIS REPORT FOR: //name// CC: Stevan Bhardwaj REFERRING PHYSICIAN: Dr. Coleman. REASON FOR REFERRAL: Dyspnea. HISTORY OF PRESENT ILLNESS: The patient is a 62-year-old white male who was admitted yesterday with dyspnea. A pulmonary consultation is requested. The patient has known severe nonischemic cardiomyopathy, ejection fraction about 10% along with chronic kidney disease, COPD. He continues to smoke. The patient has had multiple hospitalizations over the past year. He has had at least 10 hospitalizations within this year, the last one being less than a week ago. On this admission, he was felt to have COPD exacerbation with heart failure. Currently, he is restless, confused. He is not compliant with treatment that has been provided for him. He appears restless. PAST MEDICAL HISTORY: As mentioned above, severe nonischemic cardiomyopathy, ejection fraction 10%, COPD, tobacco abuse, chronic kidney disease, gout, cholecystitis, chronic kidney disease stage 3, anemia, biliary dyskinesia. PAST SURGICAL HISTORY: Past knee surgery. ALLERGIES: None to medications. HOME MEDICATIONS: List reviewed, these include Coreg, Percocet, Zofran, Protonix, Ventolin HFA, nebulized albuterol. FAMILY HISTORY: Noncontributory. SOCIAL HISTORY: Continues to smoke about a pack a day, he has had a history of drug abuse including methamphetamines. He is . REVIEW OF SYSTEMS: As mentioned above. The patient has noted progressive weight loss over the past year. PHYSICAL EXAMINATION: GENERAL: He is awake, restless, disoriented to place and time. VITAL SIGNS: Temperature is 98 degrees Fahrenheit, pulse is 90, respiratory [facility] [address] [place] [address] CONSULTATION Name: TUTU BARRIGA Room #: [facility] IN M.R.#: [id number] Admission: 05/12/18 Attend Phys: Stevan Coleman Discharge: 05/14/18 Date of : 57 Report #: [id number] rate is 24, blood pressure is 100/74 mmHg, saturation is 100%. HEENT: Unremarkable. NECK: Supple. CHEST: Breath sounds are fair. Air movements are decreased. No obvious rales or wheezes. CARDIOVASCULAR: Heart sounds are distant. Normal S1, S2. There is no murmur or gallop. There is no JVD, no carotid bruit. Pulses are 2+/4+ bilaterally. ABDOMEN: Soft, nontender, no organomegaly or masses felt. GENITOURINARY: Deferred. RECTAL: Deferred. EXTREMITIES: There is no edema, cyanosis or clubbing. LABORATORY DATA: Chest x-ray shows cardiomegaly, small left-sided pleural effusion. Sodium 131, potassium 3.9, chloride 88, CO2 is 39, BUN is 45, creatinine is 1.5. Liver enzymes are mildly abnormal. Albumin is 2.7. WBC 11,600, hemoglobin is 12.8, platelets ____. IMPRESSION: 1. Progressive dyspnea in this 62-year-old white male with a history of chronic obstructive pulmonary disease, tobacco abuse, severe nonischemic cardiomyopathy. His dyspnea is probably multifactorial. 2. Chronic obstructive pulmonary disease, severity unknown without obvious exacerbation. 3. Severe nonischemic cardiomyopathy, presumed [id number]-[id number] heart failure. 4. Tobacco abuse. 5. Malnutrition with progressive weight loss over the past year. 6. Encephalopathy, likely related to hypoxia along with severe comorbid condition. 7. Chronic kidney disease. 8. History of substance abuse including methamphetamines along with tobacco. RECOMMENDATION AND DISCUSSION: I will recommend bronchodilators, corticosteroids, and broad-spectrum antibiotics. We will try to wean O2 for saturation 90%. Given his severe comorbid condition also discussed with the regarding his overall outlook which appears to be poor. My concern is that he has lost weight over the past year along with severe comorbid conditions. He voices understanding. At this time, he desires a DNR status. Should the patient's condition deteriorate, I would recommend comfort measures. [address] [address] CONSULTATION Name: TUTU BARRIGA Room #: 212-P [facility] IN M.R.#: [id number] Admission: 05/12/18 Attend Phys: Stevan Coleman Discharge: 05/14/18 Date of : 57 Report #: [id number] Thank you for this consultation. <ELECTRONICALLY SIGNED> By: Ismael Morton MD 05/14/18 1518 1217 0102 Ismael Morton MD /nt
[~2018-05-12 14:09] MED LIST changes: +ZOFRAN ODT4 MG DISSOLVE
[2018-05-12 14:14] VITALS: BP 112/77
[2018-05-12 15:17] LABS: HEMOGLOBIN 12.3 gm/dL (14.0-18.0); MCH 22.4 pg (26.0-34.0); MCHC 31.5 g/dL (28.0-37.0); PLATELET COUNT 301 thou/uL (150-400); RBC 5.49 mil/uL (4.50-6.00); RDW 22.2 % (10.5-14.5); WBC 11.6 thou/uL (4.0-11.0)
[2018-05-12 15:29] LABS: ANION GAP 4 mmol/L (7-16); BUN 45 mg/dL (7-18); CHLORIDE 88 mmol/L (98-107); CO2 39 mmol/L (21-32); CREATININE 1.5 mg/dL (0.7-1.3); GLUCOSE 133 mg/dL (74-106); POTASSIUM 3.9 mmol/L (3.5-5.1); SODIUM 131 mmol/L (136-145)
[2018-05-12 15:38] LABS: ALBUMIN 2.7 g/dL (3.4-5.0); SGOT 47 U/L (15-37); SGPT 24 U/L (30-65); TOTAL BILIRUBIN 2.2 mg/dL (<0.1-1.0); TOTAL PROTEIN 7.5 g/dL (6.4-8.2); TROPONIN-I <0.06 ng/mL (<0.06)
[2018-05-12 16:02] LABS: ABSOLUTE NEUTROPHILS 8.1 thou/uL (1.4-8.2); ANISOCYTOSIS 1+; HYPOCHROMASIA SLIGHT; MICROCYTES 2+; PLATELET ESTIMATE NORMAL
[2018-05-12 18:12] VITALS: BP 107/82
[2018-05-12 18:40] VITALS: BP 126/90
[2018-05-12 21:51] VITALS: BP 125/87
[2018-05-13] VITALS (7 sets, daily range): BP systolic 96–111; BP diastolic 61–79
[2018-05-13 01:09] LABS: AMP/METHAMP Negative (Negative); BARBITURATES Negative (Negative); BENZODIAZEPINES Negative (Negative); COCAINE Negative (Negative); METHADONE Negative (Negative); OPIATES Negative (Negative); PCP Negative (Negative)
[2018-05-14 03:49] VITALS: BP 111/70
[2018-05-14 07:31] VITALS: BP 101/71
[2018-05-14] MEDS ORDERED: PREDNISONE 20 M20 MG PO (09:35)
[2018-05-14 11:57] VITALS: BP 101/71
== END 2018-05-14 12:15 | disposition home or self-care (01) | DRG 291 ==
LOC: ER 14:09 → EROBS 18:15 → 2N 18:15 → EROBS 18:56 → 2N 19:46
PROVIDERS: Emergency Medicine; Nurse Practitioner Acute Care
PROC: 5A09357 Assistance with Respiratory Ventilation, Less than 24 Consecutive Hours, Continuous Positive Airway Pressure (ICD-10-PCS; principal; 2018-05-13)
DX: I50.23 Acute on chronic systolic (congestive) heart failure (principal); J96.20 Acute and chronic respiratory failure, unspecified whether with hypoxia or hypercapnia; G92 Toxic encephalopathy; E43 Unspecified severe protein-calorie malnutrition; J44.1 Chronic obstructive pulmonary disease with (acute) exacerbation; I42.8 Other cardiomyopathies; M10.9 Gout, unspecified; N18.3 Chronic kidney disease, stage 3 (moderate); K21.9 Gastro-esophageal reflux disease without esophagitis; F17.210 Nicotine dependence, cigarettes, uncomplicated; K82.8 Other specified diseases of gallbladder; Z66 Do not resuscitate; F41.9 Anxiety disorder, unspecified; G72.9 Myopathy, unspecified; Z68.20 Body mass index [BMI] 20.0-20.9, adult; Z79.899 Other long term (current) drug therapy; Z51.5 Encounter for palliative care
CPT/HCPCS: 10081

== ENCOUNTER 2018-05-15 00:26 | Inpatient (IN) | payer OTHER ==
[~2018-05-15] VITALS: Ht 175.3 cm; Wt 65.1 kg
--- NOTE | ~2018-05-15 | PATH ---
[facility] [address] [place] [address] PATHOLOGY RPT PROCEDURE Name: TUTU BARRIGA Room #: 454-P ADM IN M.R.#: [id number] Admission: 05/15/18 Date of : 57 Discharge: Report #: [id number] Path Case #: [id number] Note [facility] Accession Number: [id number] TESTS RESULT FLAG UNITS REF RANGE LAB Clinician Provided Cytology Information No. of containers..01 Other (Miscellaneous) Source: ABDOMINAL FLUID DIAGNOSIS: 02 ABDOMINAL FLUID NEGATIVE FOR MALIGNANT CELLS. SCANT CELLULARITY. MESOTHELIAL CELLS ARE PRESENT. THIS INTERPRETATION INCLUDES EVALUATION OF A CELL BLOCK. Signed out by: Carmen Degroot MD, Pathologist NPI- [id number] Performed by: Keegan Rae, Ibm Bpm Architect ([facility]) Gross description: 01 30 ML, YELLOW, CLOUDY /LCS FLAG LEGEND: L-Low Normal,H-High Normal,LL-Alert Low,HH-Alert High <-Panic Low,>-Panic High,A-Abnormal,AA-Critical Abnormal Performed at: [address] [place] [address] Td Pastrana MD, [address] [address] Carmen Degroot MD, Specimen Comment: A courtesy copy of this report has been sent to Specimen Comment: [phone]. Specimen Comment: A duplicate report has been generated due to demographic updates. Performed at: [address], [place], [place] [id number] MD Td Pastrana MD Phone: [phone]
[2018-05-15 00:31] VITALS: BP 114/78
[2018-05-15 00:54] LABS: HEMOGLOBIN 13.5 gm/dL (14.0-18.0); MCH 22.7 pg (26.0-34.0); MCHC 31.4 g/dL (28.0-37.0); MCV 72.5 fL (80.0-100.0); RBC 5.93 mil/uL (4.50-6.00); RDW 23.4 % (10.5-14.5); WBC 20.5 thou/uL (4.0-11.0)
[2018-05-15 00:56] LABS: PLATELET COUNT 213 thou/uL (150-400)
[2018-05-15 01:10] LABS: HEMATOCRIT 42.8 % (42.0-52.0); HEMOGLOBIN 13.6 gm/dL (14.0-18.0); MCHC 31.8 g/dL (28.0-37.0); MCV 72.3 fL (80.0-100.0); RBC 5.93 mil/uL (4.50-6.00); RDW 23.3 % (10.5-14.5); WBC 19.7 thou/uL (4.0-11.0)
[2018-05-15 01:20] LABS: ABSOLUTE NEUTROPHILS 17.4 thou/uL (1.4-8.2)
[2018-05-15 01:21] LABS: HYPOCHROMASIA SLIGHT; MICROCYTES 1+
[2018-05-15 01:22] LABS: ANISOCYTOSIS 2+; LARGE PLATELETS OCCASIONAL
[2018-05-15 01:30] LABS: CALCIUM 9.3 mg/dL (8.5-10.1); POTASSIUM 5.3 mmol/L (3.5-5.1); TOTAL BILIRUBIN 2.1 mg/dL (<0.1-1.0); TOTAL PROTEIN 7.8 g/dL (6.4-8.2)
[2018-05-15 01:33] LABS: CREATININE 2.7 mg/dL (0.7-1.3)
[2018-05-15 02:54] LABS: URINE BILIRUBIN NEGATIVE (Negative); URINE BLOOD NEGATIVE (Negative); URINE CLARITY CLEAR; URINE COLOR YELLOW; URINE GLUCOSE-RANDOM* NEGATIVE (Negative); URINE KETONES NEGATIVE (Negative); URINE LEUKOCYTES-REFLEX NEGATIVE (Negative); URINE NITRITE-REFLEX NEGATIVE (Negative); URINE PROTEIN (DIPSTICK) TRACE (Negative)
[2018-05-15 04:06] VITALS: BP 105/80
[2018-05-15 04:19] VITALS: BP 105/80
[2018-05-15 04:46] VITALS: BP 117/87
[2018-05-15 14:10] VITALS: BP 107/28
[2018-05-15 19:38] VITALS: BP 99/72
[2018-05-16 01:07] LABS: URINE BILIRUBIN NEGATIVE (Negative); URINE BLOOD NEGATIVE (Negative); URINE CLARITY CLEAR; URINE COLOR YELLOW; URINE GLUCOSE-RANDOM* NEGATIVE (Negative); URINE KETONES NEGATIVE (Negative); URINE LEUKOCYTES-REFLEX NEGATIVE (Negative); URINE NITRITE-REFLEX NEGATIVE (Negative); URINE PROTEIN (DIPSTICK) NEGATIVE (Negative); URINE SPECIFIC GRAVITY 1.015 (1.005-1.035); URINE UROBILINOGEN 0.2 E.U./dl (0.2-1.0)
[2018-05-16 06:02] LABS: HEMATOCRIT 41.6 % (42.0-52.0); HEMOGLOBIN 13.2 gm/dL (14.0-18.0); MCH 22.9 pg (26.0-34.0); MCHC 31.8 g/dL (28.0-37.0); RBC 5.78 mil/uL (4.50-6.00); RDW 23.6 % (10.5-14.5)
[2018-05-16 06:15] LABS: ALBUMIN 2.8 g/dL (3.4-5.0); CALCIUM 9.1 mg/dL (8.5-10.1); CREATININE 3.1 mg/dL (0.7-1.3); PHOSPHORUS 6.5 mg/dL (2.5-4.9); POTASSIUM 5.8 mmol/L (3.5-5.1)
[2018-05-16 08:13] VITALS: BP 95/67
[2018-05-16 10:43] LABS: CALCIUM 9.1 mg/dL (8.5-10.1); CREATININE 3.2 mg/dL (0.7-1.3)
[2018-05-16 10:44] LABS: CLARITY CLOUDY; COLOR DARK YELLOW; SOURCE ABDOMINAL; TOTAL VOLUME 60 mL
[2018-05-16 12:23] LABS: BF NUCLEATED CELLS 39; BF RBC 3160
[2018-05-16 14:47] LABS: BF MACROPHAGE 1; BF NEUTROPHILS 3
[2018-05-16 15:55] VITALS: BP 116/81
[2018-05-16 21:43] VITALS: BP 124/92
[2018-05-17 03:10] LABS: BODY FLUID ALBUMIN 1.4 g/dL (()); BODY FLUID AMYLASE 16 U/L (()); BODY FLUID GLUCOSE 155 mg/dL (()); BODY FLUID LDH 103 IU/L (())
[2018-05-17 05:31] LABS: HEMATOCRIT 39.1 % (42.0-52.0); HEMOGLOBIN 12.1 gm/dL (14.0-18.0); MCH 22.6 pg (26.0-34.0); MCV 72.9 fL (80.0-100.0); RBC 5.36 mil/uL (4.50-6.00); RDW 24.5 % (10.5-14.5); WBC 11.9 thou/uL (4.0-11.0)
[2018-05-17 05:45] LABS: ALBUMIN 2.8 g/dL (3.4-5.0); CALCIUM 8.9 mg/dL (8.5-10.1); CREATININE 2.9 mg/dL (0.7-1.3)
[2018-05-17 05:46] LABS: POTASSIUM 3.4 mmol/L (3.5-5.1)
[2018-05-17 08:32] VITALS: BP 128/86
[2018-05-17 20:05] VITALS: BP 100/56
[2018-05-18 08:45] VITALS: BP 119/69
== END 2018-05-18 11:47 | disposition left against medical advice (07) | DRG 371 ==
LOC: ER 00:26 → EROBS 03:40 → 4W 03:40 → EROBS 04:20 → 4W 04:20
PROVIDERS: Hospitalist; Nurse Practitioner Family; Student in an Organized Health Care Education/Training Program; Surgery
PROC: 0W9G3ZX Drainage of Peritoneal Cavity, Percutaneous Approach, Diagnostic (ICD-10-PCS; principal; 2018-05-16)
DX: K65.9 Peritonitis, unspecified (principal); E43 Unspecified severe protein-calorie malnutrition; E87.2 Acidosis; N17.9 Acute kidney failure, unspecified; I50.22 Chronic systolic (congestive) heart failure; I13.0 Hypertensive heart and chronic kidney disease with heart failure and stage 1 through stage 4 chronic kidney disease, or unspecified chronic kidney disease; K82.8 Other specified diseases of gallbladder; M10.9 Gout, unspecified; N18.3 Chronic kidney disease, stage 3 (moderate); J44.9 Chronic obstructive pulmonary disease, unspecified; K21.9 Gastro-esophageal reflux disease without esophagitis; F17.210 Nicotine dependence, cigarettes, uncomplicated; F41.9 Anxiety disorder, unspecified; Z51.5 Encounter for palliative care; Z66 Do not resuscitate; Z53.21 Procedure and treatment not carried out due to patient leaving prior to being seen by health care provider; Z68.21 Body mass index [BMI] 21.0-21.9, adult
CPT/HCPCS: 10045

== ENCOUNTER 2018-06-15 06:49 | Inpatient (IN) | payer OTHER ==
[~2018-06-15] VITALS: Ht 175.3 cm; Wt 80.3 kg
--- NOTE | ~2018-06-15 | HC ---
[facility] [place] [address] CONSULTATION Name: TUTU BARRIGA Room #: [facility]- ADM IN M.R.#: [id number] Admission: 06/15/18 Attend Phys: Saji Ring MD Discharge: Date of : 57 Report #: [id number] THIS REPORT FOR: //name// CC: Saji Ring [facility] physician/PCP DATE OF SERVICE: 06/17/2018 REASON FOR CONSULTATION: CHF. HISTORY OF PRESENT ILLNESS: The patient is a 62-year-old male with nonischemic cardiomyopathy, severe LV dysfunction, presents as a routine consult, where he presented initially 2 days ago with worsening congestive heart failure after being hospitalized for CHF exacerbation the week prior. Most of his CHF is involving his abdomen. In the past, he has had thoracentesis and paracentesis, but most recently he has been progressively more short of breath. He is currently a DNR. He denies chest pain or syncope or presyncope. He has been on telemetry with unremarkable cardiac telemetry. PAST MEDICAL HISTORY: Nonischemic cardiomyopathy, EF 10-15%. He had been on outpatient Entresto, but because of kidney disease, hypotension, this had to be discontinued. He had bilateral pleural effusions, ascites, chronic anemia, chronic kidney disease, baseline creatinine 2.5-3, remote drug use, history of mild coronary artery disease, on prior cardiac catheterization. ALLERGIES: He has no known drug allergies. HOME MEDICATIONS: Include Carvedilol 6.25 mg p.o. b.i.d., Zofran, clindamycin, albuterol. PAST SURGICAL HISTORY: No recent surgeries. REVIEW OF SYSTEMS: GENERAL: No fevers or chills. SKIN: His lower extremity redness has resolved, but he has had increasing lower extremity edema. GASTROINTESTINAL: Positive abdominal distention, but no pain. Positive nausea, anorexia. HEMATOLOGIC: No anemia. RENAL: Positive kidney disease. CARDIOVASCULAR: No chest pain. Positive dyspnea, positive orthopnea, positive [facility] [address] [place] [address] CONSULTATION Name: TUTU BARRIGA Room #: [address] [place] [address] [place] [facility].#: [id number] Admission: 06/15/18 Attend Phys: Saji Ring MD Discharge: Date of : 57 Report #: [id number] PND. PHYSICAL EXAMINATION: VITAL SIGNS: Blood pressure 106/79, pulse 75, temperature 36.7. GENERAL: This is a middle-aged male. He is in mild distress. HEENT: Unremarkable. NECK: Supple. There is moderate jugular venous distention. CARDIOVASCULAR: Regular. There is positive S3. There is faint apical murmur. LUNGS: Diminished breath sounds are noted with thin basilar rales. ABDOMEN: Positive distention with positive fluid wave, nontender. EXTREMITIES: There is 3+ pretibial edema to the knees. NEUROLOGIC: There are no focal deficits. PSYCHIATRIC: The patient is alert. LABORATORY DATA: Electrocardiogram on 06/15 revealed a sinus rhythm, left bundle branch block, QRS 135 milliseconds. IMPRESSION: 1. Nonischemic cardiomyopathy. 2. Acute systolic congestive heart failure. 3. Acute on chronic kidney disease. 4. DNR/DNI. 5. Ascites. 6. Pleural effusions. 7. Respiratory insufficiency. In the past, he had been evaluated for Bi-V ICD and was not felt to be a candidate. He is on essentially comfort care measures at this point in time. In the past, he had responded to milrinone, and his blood pressure may not allow him to tolerate it, but he is not really diuresing at this point, so I think we should trial this for 12-18 hours. Continue with diuretics along with it. We have had discussions in the past regarding hospice. <ELECTRONICALLY SIGNED> By: Jace Naik MD, FACC 06/20/18 1630 1815 1139 Turner Ignacio MD, FACC /nt
--- NOTE | ~2018-06-15 | 2DMMODE ---
[facility] [address] [place] [address] 2 D/M-MODE ECHOCARDIOGRAM Name: TUTU BARRIGA Room #: 205-P ADM IN M.R.#: [id number] Admission: 06/15/18 Attend Phys: Saji Ring MD Discharge: Date of : 57 Date of Service: 06/20/18 1144 Report #: [id number] THIS REPORT FOR: //name// APPROVED REPORT Study performed: 06/20/2018 08:36:55 EXAM: Comprehensive 2D, Doppler, and color-flow Echocardiogram Patient Location: Bedside Room #: 205 Status: routine BSA: 1.96 HR: 85 bpm BP: 104/57 mmHg Rhythm: NSR Other Information Study Quality: Excellent Indications Congestive Heart Failure Acute systolic heart failure. Hx: NIS 2D Dimensions RVDd: 48.23 mm IVSd: 9.86 (7-11mm) LVOT Diam: 22.73 (18-24mm) LVDd: 74.02 mm PWd: 10.18 (7-11mm) Ascending Ao: 33.71 (22-36mm) LVDs: 64.72 (25-40mm) Aortic Root: 32.99 mm Volumes Left Atrial Volume (Systole) Single Plane 4CH: 90.03 mL Single Plane 2CH: 99.28 mL LA ESV Index: 52.00 mL/m2 Aortic Valve AoV Peak Turner.: 1.31 m/s AO Peak Gr.: 6.91 mmHg LVOT Max P.64 mmHg LVOT Max V: 0.81 m/s NOE Vmax: 2.51 cm2 Mitral Valve E/A Ratio: 1.2 MV Decel. Time: 226.64 ms [facility] [address] [place] [address] 2 D/M-MODE ECHOCARDIOGRAM Name: TUTU BARRIGA Room #: [address] [place] [address] [place] ..#: [id number] Admission: 06/15/18 Attend Phys: Saji Ring MD Discharge: Date of : 57 Date of Service: 06/20/18 1144 Report #: [id number] MV E Max Turner.: 0.78 m/s MV A Turner.: 0.63 m/s MV PHT: 65.73 ms IVRT: 76.12 ms Pulmonary Valve PV Peak Turner.: 1.07 m/s PV Peak Gr.: 4.56 mmHg Pulmonary Vein P Vein S: 0.72 m/s P Vein D: 0.48 m/s P Vein S/D Ratio: 1.50 Tricuspid Valve TR Peak Turner.: 3.16 m/s RAP Estimate: 15.00 mmHg TR Peak Gr.: 40.04 mmHg PA Pressure: 55.00 mmHg Left Ventricle Left ventricle is severely dilated. There is global hypokinesis of the left ventricle. There is normal left ventricular wall thickness. Left ventricular systolic function is severely decreased. LVEF is 15-20%. Moderate diastolic dysfunction is present (pseudonormal filling). Right Ventricle Right ventricle is moderately dilated. Right ventricle is moderately hypokinetic. Atria Left atrium is severely dilated. Right atrium is severely dilated. Aortic Valve The Aortic valve is mildly sclerotic. No aortic regurgitation is present. There is no aortic valvular stenosis. Mitral Valve The mitral valve is mildly thickened. Mild to moderate mitral regurgitation. No evidence of mitral valve stenosis. Tricuspid Valve The tricuspid valve is normal in structure. Moderate tricuspid regurgitation. Estimated PAP is 55mmHg. Pulmonic Valve [facility] [address] [place] [address] 2 D/M-MODE ECHOCARDIOGRAM Name: TUTU BARRIGA Room #: 205-P ADM IN M.R.#: [id number] Admission: 06/15/18 Attend Phys: Saji Ring MD Discharge: Date of : 57 Date of Service: 06/20/18 1144 Report #: [id number] The pulmonary valve is normal in structure. Mild pulmonic regurgitation. Great Vessels The aortic root is normal in size. The ascending aorta is normal in size. IVC is dilated and collapses <50% with inspiration. Pericardium There is no pericardial effusion. Left and right pleural effusions noted. <Conclusion> LVEF is 15-20%. Left atrium is severely dilated. Mild to moderate mitral regurgitation. Moderate tricuspid regurgitation. Estimated PAP is 55mmHg. <ELECTRONICALLY SIGNED> By: Jace Naik MD, FACC 06/20/18 1144 1144 1144 Jace Naik MD, FAC /INF
--- NOTE | ~2018-06-15 | HC ---
[facility] [place] [address] CONSULTATION Name: TUTU BARRIGA Room #: 457-P ADM IN M.R.#: [id number] Admission: 06/15/18 Attend Phys: Saji Ring MD Discharge: Date of : 57 Report #: [id number] THIS REPORT FOR: //name// CC: Saji Ring MD FAM physician/PCP REQUESTING PHYSICIAN: Saji Ring MD. CHIEF COMPLAINT: End-stage heart failure. HISTORY OF PRESENT ILLNESS: The patient is a 62-year-old male who presented to [facility] on 06/15/2018. The patient has had multiple admissions for recurrent congestive heart failure, acute on chronic systolic, [place] Heart Stage 4. He has also history of chronic kidney disease as well complicating this. The patient continues to have recurrent admissions. He has been unfortunately unable to control symptoms at home, now currently has anasarca. He has significant dyspnea and significant ascites with unsuccessful paracentesis at last visit. Most recent ejection fraction is 10-15%. The patient was previously on Coreg, clindamycin, Protonix, albuterol, Percocet, potassium chloride and Lasix, though his home dosing did not appear sufficient to continue to control symptoms. PAST MEDICAL HISTORY: Systolic heart failure, hypertension, chronic kidney disease stage 3, COPD, duodenal ulcer, gout. PAST SURGICAL HISTORY: Cholecystostomy and cholecystostomy tube. SOCIAL HISTORY: Smoking, 1/2 pack per day smoking currently. He is , lives at home with his spouse. MEDICATIONS: Coreg, clindamycin, Protonix, albuterol, Percocet, potassium chloride and Lasix. CODE STATUS: DNR, which was confirmed today. ALLERGIES: No known drug allergies. FAMILY HISTORY: Noncontributory. REVIEW OF SYSTEMS: Difficult to obtain some of these at this time, the patient is confused at times. Attention level appears to be poor. GENERAL: He does report significant weight gain. ABDOMEN: Reports significant abdominal distention. CARDIOVASCULAR: Denies chest pain, but does have significant lower extremity edema. RESPIRATORY: Does report shortness of breath and cough. [facility] [address] [place] [address] CONSULTATION Name: TUTU BARRIGA Room #: 457-P [facility] IN ..#: [id number] Admission: 06/15/18 Attend Phys: Saji Ring MD Discharge: Date of : 57 Report #: [id number] PHYSICAL EXAMINATION: VITAL SIGNS: Temperature 36.3, pulse 96, respiration 18, blood pressure 106/80, 99% on room air. GENERAL: The patient is oriented to self and place. He is in no acute distress currently. RESPIRATORY: Upper lung sounds clear to auscultation. No accessory muscle use. No respiratory distress. CARDIOVASCULAR: Regular rate and rhythm without significant murmur at this time. He does have significant lower extremity edema and ascites on exam. ABDOMEN: Again, ascites present. It is soft and nontender. LABORATORY DATA: Hemoglobin 13.0, white blood cells 12.6; creatinine 2.5, alkaline phosphatase 381. BNP 33,000. ASSESSMENT AND PLAN: 1. Acute on chronic systolic heart failure. At this point in time, I have discussed successfully with the patient and his spouse with regards to the options that they have going forward including rehabilitation including long-term care and hospice as well as palliative care. They are interested in speaking with hospice providers. The patient does express the knowledge and the understanding that he does have an end of life diagnosis. The patient is amenable to providers, really speaking to them at this time, would likely benefit from a compassionate care admission. I do think at this point in time, we can be aggressive with regards to treatment of his overall edema status, the patient is amenable to this. He is understanding of the fact that this may worsen his kidney disease and additionally could even lead to arrhythmia. I did discuss the addition of metolazone given his renal function unfortunately may not be as successful as previous, but again we are attempting this out of comfort. He may benefit again from having Lasix drip followed by reinstitution of a different diuretic such as possibly torsemide or Bumex again at home. The patient may benefit from continuous subcutaneous Lasix with hospice and possibly dobutamine, which was discussed with them at this time. I spent approximately 35 minutes in discussion of advanced care planning, confirmed of advanced directive. This information was passed along to the egg caser for discussion further with regards to hospice provider. 2. Hypoxic respiratory failure secondary to pulmonary edema. Again, overall would attempt to get his symptoms under better management given now we are understanding of a comfort type of approach versus a curative type of approach. He is amenable again to changes in his medication at this time; chronic obstructive pulmonary disease again contributing to above. 3. Acute renal failure on top of chronic kidney disease, unfortunately contributing to overall prognosis and ability to diurese. The patient would benefit from additional measures, possibly Lasix drip for further management. Again, information provided to family. We will await complex case manager overall [facility] [address] [place] [address] CONSULTATION Name: TUTU BARRIGA Room #: 457-P ADM IN M.R.#: [id number] Admission: 06/15/18 Attend Phys: Saji Ring MD Discharge: Date of : 57 Report #: [id number] discussion with family and can adjust medications as necessary. Thank you very much for the consultation. By: [id number] Lion Dodge DO /nt
--- NOTE | ~2018-06-15 | EKG ---
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: LIN : 1955 Requested By: Xavier Anderson Order Number: [id number] MD: Osmani Roe Measurements Intervals [place] Rate: 95 P: 75 [place]: 186 QRS: -71 QRSD: 135 T: 77 QT: 414 QTc: 521 Interpretive Statements Sinus rhythm Left atrial enlargement Left bundle branch block Compared to ECG 05/12/2018 14:57:20 No significant changes Electronically Signed On 06-15-2018 7:58:11 FARM OPERATOR by Osmani Roe [email or web address] <ELECTRONICALLY SIGNED> By: Osmani Roe MD, [facility] 06/15/18 0758 [id number] 07 Osmani Roe MD, [facility] /EPI
[~2018-06-15 06:49] MED LIST changes: +CLEOCIN HCL150 MG PO
[2018-06-15 06:50] VITALS: BP 109/69
[2018-06-15 07:34] LABS: BASOPHILS 0.4 % (0.0-2.0)
[2018-06-15 07:38] LABS: ABSOLUTE NEUTROPHILS 6.2 thou/uL (1.4-8.2); EOSINOPHILS 0.8 % (0.0-3.0); LYMPHOCYTES 40.2 % (24.0-44.0); MCH 23.2 pg (26.0-34.0); MCHC 31.6 g/dL (28.0-37.0); MCV 73.3 fL (80.0-100.0); MONOCYTES 9.2 % (1.0-8.0); PLATELET COUNT 309 thou/uL (150-400); POLYS 49.4 % (36.0-66.0); RDW 24.5 % (10.5-14.5); WBC 12.6 thou/uL (4.0-11.0)
[2018-06-15 07:50] LABS: ANION GAP 11 mmol/L (7-16); BUN 58 mg/dL (7-18); CALCIUM 9.7 mg/dL (8.5-10.1); CHLORIDE 97 mmol/L (98-107); CO2 29 mmol/L (21-32); CREATININE 2.5 mg/dL (0.7-1.3); GLUCOSE 119 mg/dL (74-106); SODIUM 137 mmol/L (136-145)
[2018-06-15 07:59] LABS: TROPONIN-I <0.06 ng/mL (<0.06)
[2018-06-15 08:11] LABS: ANISOCYTOSIS 2+
[2018-06-15 08:12] LABS: HYPOCHROMASIA 1+; MICROCYTES 1+
[2018-06-15 08:29] LABS: ALBUMIN 2.5 g/dL (3.4-5.0); TOTAL BILIRUBIN 1.4 mg/dL (<0.1-1.0); TOTAL PROTEIN 7.3 g/dL (6.4-8.2)
[2018-06-15 11:14] VITALS: BP 124/78
[2018-06-15 12:21] VITALS: BP 106/80
[2018-06-15 17:53] VITALS: BP 121/89
[2018-06-16 00:57] VITALS: BP 93/66
[2018-06-16 05:07] VITALS: BP 101/70
[2018-06-16 06:26] LABS: HEMATOCRIT 37.3 % (42.0-52.0); HEMOGLOBIN 11.8 gm/dL (14.0-18.0); MCH 23.1 pg (26.0-34.0); MCHC 31.6 g/dL (28.0-37.0); RBC 5.11 mil/uL (4.50-6.00); RDW 24.5 % (10.5-14.5); WBC 9.1 thou/uL (4.0-11.0)
[2018-06-16 06:40] LABS: CALCIUM 8.9 mg/dL (8.5-10.1); CREATININE 2.6 mg/dL (0.7-1.3); POTASSIUM 4.1 mmol/L (3.5-5.1)
[2018-06-16 07:02] VITALS: BP 101/78
[2018-06-16 14:28] VITALS: BP 119/62
[2018-06-17 05:45] VITALS: BP 97/66
[2018-06-17 07:24] LABS: CALCIUM 9.1 mg/dL (8.5-10.1); CREATININE 2.5 mg/dL (0.7-1.3); POTASSIUM 4.7 mmol/L (3.5-5.1)
[2018-06-17 08:17] VITALS: BP 106/79
[2018-06-17 16:57] VITALS: BP 106/79
[2018-06-17 21:35] VITALS: BP 112/83
[2018-06-17 23:32] VITALS: BP 111/83
[2018-06-18 06:47] LABS: CALCIUM 9.1 mg/dL (8.5-10.1); CREATININE 2.2 mg/dL (0.7-1.3)
[2018-06-18 07:05] LABS: POTASSIUM 3.4 mmol/L (3.5-5.1)
[2018-06-18 07:20] VITALS: BP 117/74
[2018-06-18 11:05] VITALS: BP 116/63
[2018-06-18 14:06] LABS: CALCIUM 9.3 mg/dL (8.5-10.1); CREATININE 2.1 mg/dL (0.7-1.3); MAGNESIUM 1.8 mg/dL (1.8-2.4)
[2018-06-18 14:08] LABS: POTASSIUM 2.4 mmol/L (3.5-5.1)
[2018-06-18 15:45] VITALS: BP 131/66
[2018-06-18 19:45] VITALS: BP 150/68
[2018-06-19 01:25] LABS: CALCIUM 9.1 mg/dL (8.5-10.1)
[2018-06-19 05:45] VITALS: BP 139/76
[2018-06-19 07:25] VITALS: BP 123/74
[2018-06-19 11:40] VITALS: BP 104/64
[2018-06-19 16:20] VITALS: BP 104/64
[2018-06-19 21:00] VITALS: BP 120/69
[2018-06-19 23:01] VITALS: BP 120/69
[2018-06-20] VITALS (9 sets, daily range): BP systolic 90–113; BP diastolic 41–77
[2018-06-20 03:51] LABS: CALCIUM 8.6 mg/dL (8.5-10.1); CREATININE 1.6 mg/dL (0.7-1.3)
[2018-06-20 03:59] LABS: POTASSIUM 2.7 mmol/L (3.5-5.1)
[2018-06-20] MEDS ORDERED: METOLAZONE 2.52.5 MG PO (16:22)
[2018-06-21] MEDS ORDERED: TRAMADOL 50 MG50 MG PO (23:41)
== END 2018-06-20 18:33 | disposition home or self-care (01) | DRG 291 ==
LOC: ER 06:49 → EROBS 09:02 → 4W 09:02 → 2N 06-17 23:05 → ENTRNSPT 06-20 17:18 → 2N 06-20 18:33
PROVIDERS: Emergency Medicine; Family Medicine; Hospitalist; Internal Medicine Cardiovascular Disease
DX: I13.0 Hypertensive heart and chronic kidney disease with heart failure and stage 1 through stage 4 chronic kidney disease, or unspecified chronic kidney disease (principal); I50.43 Acute on chronic combined systolic (congestive) and diastolic (congestive) heart failure; J96.91 Respiratory failure, unspecified with hypoxia; E43 Unspecified severe protein-calorie malnutrition; N17.9 Acute kidney failure, unspecified; R18.8 Other ascites; I42.9 Cardiomyopathy, unspecified; M10.9 Gout, unspecified; N18.3 Chronic kidney disease, stage 3 (moderate); J44.9 Chronic obstructive pulmonary disease, unspecified; K21.9 Gastro-esophageal reflux disease without esophagitis; F17.210 Nicotine dependence, cigarettes, uncomplicated; Z66 Do not resuscitate; Z51.5 Encounter for palliative care; I25.10 Atherosclerotic heart disease of native coronary artery without angina pectoris; E87.6 Hypokalemia; Z90.49 Acquired absence of other specified parts of digestive tract; Z68.26 Body mass index [BMI] 26.0-26.9, adult; Z79.899 Other long term (current) drug therapy
CPT/HCPCS: 10045; 10081

== ENCOUNTER 2018-06-21 21:42 | Emergency (ER) | payer OTHER ==
[~2018-06-21] VITALS: Ht 175.3 cm; Wt 45.4 kg
--- NOTE | ~2018-06-21 | EKG ---
[place] [address] [place] [address] ELECTROCARDIOGRAM REPORT Name: TUTU BARRIGA [id number] Admission: 06/21/18 Attend Phys: Discharge: 06/22/18 Date of : 57 Report #: [id number] THIS REPORT FOR: //name// [facility] ED Test Date: 2018-06-21 Test Time: 23:09:03 Pat Name: TUTU BARRIGA Department: Room: Gender: Net Developer: Luke HERRERA : 1955 Requested By: Aditya Steve Order Number: [id number] MD: Osmani Roe Measurements Intervals [place] Rate: 94 P: 66 TN: 202 QRS: -53 QRSD: 138 T: 116 QT: 429 QTc: 537 Interpretive Statements Sinus rhythm occasional premature ventricular complexes Probable left atrial enlargement Left bundle branch block Compared to ECG 06/15/2018 07:03:06 PVC is now present Electronically Signed On 06-22-2018 7:51:15 DESIZING MACHINE OPERATOR HEAD END by Osmani Roe [email or web address] <ELECTRONICALLY SIGNED> By: Osmani Roe MD, [facility] 06/22/18 0751 08 08 Osmani Roe MD, [facility] /EPI
[~2018-06-21 21:42] MED LIST changes: +METOLAZONE 2.52.5 MG PO
[2018-06-21 23:05] LABS: ABSOLUTE NEUTROPHILS 6.5 thou/uL (1.4-8.2); BASOPHILS 1.4 % (0.0-2.0); HEMATOCRIT 38.5 % (42.0-52.0); HEMOGLOBIN 12.3 gm/dL (14.0-18.0); LYMPHOCYTES 36.1 % (24.0-44.0); MCH 22.9 pg (26.0-34.0); MCHC 31.9 g/dL (28.0-37.0); MCV 71.8 fL (80.0-100.0); MONOCYTES 7.9 % (1.0-8.0); PLATELET COUNT 178 thou/uL (150-400); POLYS 53.6 % (36.0-66.0); RBC 5.37 mil/uL (4.50-6.00); RDW 23.3 % (10.5-14.5); WBC 12.2 thou/uL (4.0-11.0)
[2018-06-21 23:14] LABS: ANION GAP 3 mmol/L (7-16); BUN 38 mg/dL (7-18); CALCIUM 9.4 mg/dL (8.5-10.1); CHLORIDE 91 mmol/L (98-107); CO2 43 mmol/L (21-32); CREATININE 1.5 mg/dL (0.7-1.3); GLUCOSE 113 mg/dL (74-106); POTASSIUM 3.3 mmol/L (3.5-5.1); SODIUM 137 mmol/L (136-145)
[2018-06-21 23:22] LABS: ALBUMIN 2.5 g/dL (3.4-5.0); LIPASE 43 U/L (73-393); SGOT 30 U/L (15-37); SGPT 18 U/L (30-65); TOTAL BILIRUBIN 1.6 mg/dL (<0.1-1.0); TOTAL PROTEIN 7.2 g/dL (6.4-8.2); TROPONIN-I <0.06 ng/mL (<0.06)
[2018-06-21 23:27] LABS: ANISOCYTOSIS 3+; HYPOCHROMASIA 2+; MICROCYTES 1+
[2018-06-21 23:28] LABS: BURR CELLS 1+; SCHISTOCYTES FEW
[2018-06-21] MEDS ORDERED: TRAMADOL 50 MG50 MG PO (23:41)
[2018-06-22 00:03] VITALS: BP 107/76
== END 2018-06-22 00:03 | disposition home or self-care (01) ==
LOC: ER 21:42
PROVIDERS: Emergency Medicine
DX: K59.00 Constipation, unspecified (principal); G89.29 Other chronic pain; I42.9 Cardiomyopathy, unspecified; I50.9 Heart failure, unspecified; R16.0 Hepatomegaly, not elsewhere classified; F17.210 Nicotine dependence, cigarettes, uncomplicated; M10.9 Gout, unspecified; N18.3 Chronic kidney disease, stage 3 (moderate); J44.9 Chronic obstructive pulmonary disease, unspecified; I95.9 Hypotension, unspecified; K21.9 Gastro-esophageal reflux disease without esophagitis; Z86.2 Personal history of diseases of the blood and blood-forming organs and certain disorders involving the immune mechanism; Z90.49 Acquired absence of other specified parts of digestive tract